=== PATIENT | female | born 1990 | race Caucasian/White ===

== ENCOUNTER 2019-08-11 06:50 | Emergency (ER) | payer OTHER, SELFPAY ==
[2019-08-11 06:52] VITALS: BP 142/63; PULSE 62; RESP 16; TEMP 37.2; O2SAT 98; BMI 28.0
--- NOTE | 2019-08-11 07:07 | RAD_ITS ---
STUDY: X-RAY CHEST REASON FOR EXAM: Female, 29 years old with acute onset of chest pain. TECHNIQUE: Single AP portable view of the chest. COMPARISON: Prior comparison studies are not available for review at this time. FINDINGS: Cardiac monitoring leads are present. The lungs are clear and hyperexpanded. There is no demonstrated pleural abnormality. Normal size heart. Normal mediastinum and fannie. Normal visualized pulmonary arteries. Normal visualized aortic arch and descending thoracic aorta. Normal visualized thoracic spine. Normal visualized ribs, clavicles, and shoulders. There is no demonstrated abnormality of the visualized soft tissue structures of the upper abdomen. RAD/Chest 1 View (Portable) IMPRESSION: No radiographic evidence of acute cardiopulmonary disease. Electronically Signed: Mona Redman MD at 7:36 EST , Service support ,
--- NOTE | 2019-08-11 07:07 | EKG12_ITS ---
Test Reason : CP Blood Pressure : / mmHG Vent. Rate : 059 BPM Atrial Rate : 059 BPM P-R Int : 140 ms QRS Dur : 094 ms QT Int : 410 ms P-R-T Axes : 034 077 031 degrees QTc Int : 405 ms Sinus bradycardia Otherwise normal ECG Confirmed by ALEKSANDAR OH, RONALD ([id number]), manager editorial WALTER MURGUIA ([id number]) on 08/12/2019 10:12:14 AM Referred By: SCOT Confirmed By:RONALD HUERTAS MD
--- NOTE | 2019-08-11 07:08 | ED.DCSUM_ITS ---
- ER Visit Summary Date of Service: 08/11/19 Chief Complaint: Chest pain History of Present Illness: The patient is a 29 F who presents with chest pain that began today. Patient states the pain is over the left chest. Patient states the pain occasionally radiates into her neck. Patient states the pain is worse with movement of her arm and with deep breathing. Patient states nothing seems to help with the pain. Patient describes the pain as tightness and sharp. Patient admits to some lightheadedness and dizziness. Patient also admits to some reflux symptoms. Patient admits to a mild episode of diaphoresis. Patient also admits to recent cough. Patient is a smoker. Patient denies any other c ardiac or PE risk factors. Physical Examination: Vital signs are stable. Patient is afebrile. Patient is in no acute distress. Oral mucosa is pink and moist. Neck is supple. Trachea is midline. There is no JVD noted. Heart was regular rate and rhythm. Lungs showed a slight expiratory wheeze in the bases bilaterally. Abdomen is soft. Bowel sounds are normal. There is no tenderness. There is no rebound or guarding noted. Skin is warm dry. Cranial nerves II through XII are intact. There are no focal motor or sensory deficits noted. Extremities are intact. Th ere is no calf tenderness or edema. Test Results: EKG showed normal sinus rhythm with a rate of 59. There are no acute ST or T wave changes. This was unchanged compared to previous EKG dated 04/16/2015. CBC shows a mild leukocytosis of 15.1. Creatinine was slightly elevated at 1.10. Previous result was 0.9. Troponin was normal. Portable chest x-ray was obtained. There is no acute cardiopulmonary process. Emergency Department Course and Treatment: Patient was given aspirin here. Patient was given a GI cocktail. Patient felt better on reevaluation. Patient was advised that this may be gastroesophageal reflux disease causing her pain. Patient has a HEART score of 2. Patient was advised this is low risk for acute cardiac event. Patient was given a prescription for Prilosec. Patient was instructed to follow-up with her primary care physician in 5 to 7 days. Patient understood and was agreeable with the plan. All questions were answered. Disposition: Discharge home Impression: 1. Chest pain of uncertain etiology This note was generated with [employer] software. It may contain incorrect words, spelling, and punctuation that were not noted in review of the chart prior to signing ED Disposition - Plan for ED Patient: Disposition: Home or Assisted Living Diagnosis: Chest pain of uncertain etiology Instructions: CHEST PAIN, Uncertain Cause Prescriptions: Omeprazole [Prilosec] 20 mg PO DAILY #30 cap Prescription Printed Referrals: Alfa Moss MD [Primary Care Provider] - 5-7 Days
[2019-08-11] MEDS: Aspirin 81 MG TAB.CHEW 324 MG PO (07:15)
[2019-08-11 07:29] LABS: Absolute Lymphocyte Count 5.21 X10^3/uL (0.83-4.51); Basophil# 0.05 X10^3/uL; Basophil% 0.3 % (0-1); Eosinophil# 0.78 X10^3/uL; Eosinophils% 5.2 % (0-5); Hematocrit 43.4 % (37-47); Hemoglobin 14.3 g/dL (12.0-15.0); Lymphocyte # 5.21 X10^3/ul (4.0); Lymphocyte % 34.6 % (19-41); Mean Corp Hgb Conc 32.9 g/dL (32-36); Mean Corpuscular Hgb 30.3 pg (27.0-32.0); Mean Corpuscular Volume 91.9 fL (81-99); Mean Platelet Vol. 9.3 fl (6.2-12.0); Monocyte# 0.96 X10^3/uL; Monocyte% 6.4 % (0-10); NRBC Flagged by Analyzer 0 % (0-5); Neutrophil # 8.01 X10^3/uL (2.7-7.7); Neutrophil % 53.2 % (47-70); POSITIVE DIFFERENTIAL YES; Platelet Count 312 K/mm3 (150-450); RBC Distribution Width CV 12.1 % (11.6-14.6); RBC Distribution Width SD 40.7 fl (35.1-43.9); Red Blood Count 4.72 M/mm3 (4.2-5.4); White Blood Count 15.1 K/mm3 (4.4-11.0)
[2019-08-11 07:36] LABS: Anion Gap 6 (5-15); BUN 12 mg/dL (7-18); BUN/Creat Ratio 10.9 RATIO (10-20); Calcium,Total 9.3 mg/dL (8.5-10.1); Chloride 105 mmol/L (98-107); EST Glomerular Filtration Rate 63 mL/min (>60); Est Glom Filt Rate - Afr Amer 77 mL/min (>60); Estimated Creatinine Clearance 71.92 ml/min; Glucose 88 mg/dL (74-106); Potassium 3.7 mmol/L (3.5-5.1); Sodium Level 137 mmol/L (136-145)
[2019-08-11 07:38] LABS: Differential Indicated SCAN CRITERIA MET
[2019-08-11 08:06] VITALS: BP 126/78; PULSE 45; RESP 16; O2SAT 97
[2019-08-11] MEDS: Mag Hydrox/Al Hydrox/Simeth 30 ML UDC PO (09:09)
[2019-08-11 09:10] VITALS: BP 118/69; PULSE 84; RESP 16; O2SAT 98
== END 2019-08-11 09:10 | disposition home or self-care (01) ==
PROVIDERS: Emergency Provider Emergency Medicine; Family Provider Family Medicine; PCP Family Medicine
DX: R07.9 Chest pain, unspecified (principal); R53.1 Weakness; M54.2 Cervicalgia; R05 Cough; F17.210 Nicotine dependence, cigarettes, uncomplicated; F41.9 Anxiety disorder, unspecified
CPT/HCPCS: 71045; 80048; 84484; 85025; 93005; 99284; A4216

== ENCOUNTER 2020-02-29 21:47 | Emergency (ER) | payer OTHER, SELFPAY ==
[2020-02-29 21:48] VITALS: BP 148/82; PULSE 73; RESP 16; TEMP 36.7; BMI 28.0
--- NOTE | 2020-02-29 22:03 | ED.VISSUMM ---
- ER Visit Summary Date of Service: 02/29/20 Chief Complaint: Generalized weakness History of Present Illness: The patient is a 29 F history of anxiety and depression. Patient states that she has had intermittent dizziness and near syncope recently. Is been intermittent and on last seconds. It comes and goes. She denies any headache chest pain or abdominal pain. She denies any nausea or vomiting. Today she did have several episodes of loose stools. Dysuria. Her last menstrual period was 3 weeks ago. She is G1, P1 Ab0. She denies any vaginal bleeding. She denies any melena. Physical Examination: Well-appearing young female. No acute distress. Vital signs are stable and afebrile. Pulse ox 96% on room air no signs hypoxia. H EENT exam normal. Neck nontender no lymphadenopathy. Lungs clear to auscultation bilaterally. Heart regular rhythm no murmur rate about 70. Abdomen soft nontender normal bowel sounds no peritoneal signs. Extremities moves all 4. Calves are nontender without edema or cords. Back nontender. Neurologically she is awake alert with no focal motor or sensory deficits. Equal symmetrical reconcilement clerk strength. Dorsi plantarflexion intact. Test Results: CBC is a white count of 14.4 previously she had a white count of 15 hemoglobin is 14. Chemistries unremarkable gap of 8. Creatinine 1.1. Emergency Department Course and Treatment: Clinically patient looks good. She is in no distress. Her exam is unremarkable. Normal heart, lung and abdominal exam. This may all be secondary to anxiety. Patient requested CBC and chemistry be done as a be evaluated if okay she will be discharged to home. Repeat exam patient is doing well at 2247. She has recently stopped taking 1 of her anxiety medications which may be part of the problem. She was instructed to restart that. Her repeat exam is unchanged and normal. Treatment Plan: Restart her anxiety meds. Follow-up with her primary care physician. Return if feeling worse. Disposition: Discharge Impression: Acute near syncope and generalized weakness of uncertain etiology History of anxiety This note was generated with the[employer] dictation software. It may contain incorrect words, spelling, and punctuation that were not noted in review of the chart prior to signing ED Disposition - Plan for ED Patient: Referrals: Alfa Moss MD [Primary Care Provider] -
[2020-02-29 22:17] VITALS: O2SAT 98
[2020-02-29 22:27] LABS: Hematocrit 42.3 % (37-47); Mean Corp Hgb Conc 33.1 g/dL (32-36); Mean Corpuscular Hgb 30.6 pg (27.0-32.0); Mean Corpuscular Volume 92.6 fL (81-99); Mean Platelet Vol. 10.1 fl (6.2-12.0); Platelet Count 294 K/mm3 (150-450); RBC Distribution Width CV 12.1 % (11.6-14.6); RBC Distribution Width SD 41.1 fl (35.1-43.9); Red Blood Count 4.57 M/mm3 (4.2-5.4); White Blood Count 14.4 K/mm3 (4.4-11.0)
[2020-02-29 22:41] LABS: Anion Gap 8 (5-15); BUN 13 mg/dL (7-18); BUN/Creat Ratio 11.5 RATIO (10-20); Calcium,Total 8.5 mg/dL (8.5-10.1); Chloride 110 mmol/L (98-107); Creatinine, Serum 1.13 mg/dL (0.55-1.02); EST Glomerular Filtration Rate 61 mL/min (>60); Est Glom Filt Rate - Afr Amer 74 mL/min (>60); Estimated Creatinine Clearance 70.01 ml/min; Glucose 114 mg/dL (74-106); Potassium 3.5 mmol/L (3.5-5.1); Sodium Level 141 mmol/L (136-145)
--- NOTE | 2020-02-29 22:50 | ED.DEP ---
ED Disposition - Plan for ED Patient: Disposition: Home or Assisted Living Instructions: ED Weakness [facility] Referrals: Alfa Moss MD [Primary Care Provider] - 3-5 Days if not improving Additional Instructions: Restart the anxiety medication that you have not been taking. Follow-up with your doctor. Return emergency department if you are feeling a lot worse. Your exam tonight and labs are unremarkable.
== END 2020-02-29 22:58 | disposition home or self-care (01) ==
PROVIDERS: Emergency Provider Emergency Medicine; PCP Family Medicine
DX: R53.1 Weakness (principal); R55 Syncope and collapse; F41.9 Anxiety disorder, unspecified; R30.0 Dysuria; R42 Dizziness and giddiness; F32.9 Major depressive disorder, single episode, unspecified
CPT/HCPCS: 80048; 85027; 94760; 99284; A4216

== ENCOUNTER 2023-08-09 12:07 | Emergency (ER) | payer OTHER, SELFPAY ==
[2023-08-09 12:07] VITALS: BP 144/96; PULSE 81; RESP 16; TEMP 36.2; O2SAT 98; BMI 28.5
[2023-08-09 13:14] LABS: Bacteria 0 SEEN /hpf (None Seen); Mucous, Urine 0 SEEN /hpf (<or=2+); Red Blood Cells-Urine 0 SEEN /hpf (0-5); Squamous Epithelial Cells - UA 0 SEEN /hpf (5-10); White Blood Cells 0 SEEN /hpf (0-5)
[2023-08-09 13:19] LABS: Absolute Lymphocyte Count 3.46 X10^3/uL (0.83-4.51); Absolute Neutrophil Count 13.3 X10^3/uL (2.0-7.7); Basophil# 0.07 X10^3/uL; Basophil% 0.4 % (0-1); Eosinophil# 0.36 X10^3/uL; Eosinophils% 1.9 % (0-5); Hemoglobin 14.8 g/dL (12.0-15.0); Lymphocyte # 3.46 X10^3/ul (0.83-4.51); Lymphocyte % 18.7 % (19-41); Mean Corp Hgb Conc 32.9 g/dL (32-36); Mean Corpuscular Volume 91.3 fL (81-99); Mean Platelet Vol. 9.8 fl (6.2-12.0); Monocyte# 1.18 X10^3/uL; Monocyte% 6.4 % (0-10); NRBC Flagged by Analyzer 0 % (0-5); Neutrophil # 13.31 X10^3/uL (2.7-7.7); Platelet Count 320 K/mm3 (150-450); RBC Distribution Width CV 12.2 % (11.6-14.6); RBC Distribution Width SD 40.5 fl (35.1-43.9); Red Blood Count 4.93 M/mm3 (4.2-5.4); White Blood Count 18.5 K/mm3 (4.4-11.0)
[2023-08-09 13:26] LABS: Color, Urine Yellow (Yellow); Glucose, Dipstick Normal (Normal); Ketone-Dipstick Negative (Negative); Leukocyte Esterase-Dipstick Negative /ul (Negative); Nitrite-Dipstick Negative (Negative); Occult Blood-Urine 25 /ul (Negative); Protein-Dipstick 30 mg/dl (Negative); Urine Bilirubin Dipstick Negative (Negative); Urine Clarity Clear (Clear); Urine Urobilinogen Normal (Normal)
[2023-08-09 13:32] LABS: Anion Gap 7 (5-15); BUN 15 mg/dL (7-18); BUN/Creat Ratio 13.8 RATIO (10-20); Calcium,Total 9.6 mg/dL (8.5-10.1); Chloride 106 mmol/L (98-107); Creatinine, Serum 1.09 mg/dL (0.55-1.02); EST Glomerular Filtration Rate 62 mL/min (>60); Est Glom Filt Rate - Afr Amer 75 mL/min (>60); Estimated Creatinine Clearance 79.96 ml/min; Glucose 108 mg/dL (74-106); Potassium 4.1 mmol/L (3.5-5.1); Sodium Level 137 mmol/L (136-145)
[2023-08-09 13:35] LABS: Amphetamine Urine VISTA NEGATIVE (<1000 ng/mL); Barbiturate Urine VISTA NEGATIVE (< 200 ng/mL); Benzodiazepine Urine VISTA NEGATIVE (< 200 ng/mL); Cocaine Urine VISTA NEGATIVE (< 300 ng/mL); Ecstacy Urine VISTA NEGATIVE (< 500 ng/mL); Methadone Urine VISTA NEGATIVE (< 300 ng/mL); PCP Urine VISTA NEGATIVE (< 25 ng/mL); THC Urine VISTA POSITIVE (< 50 ng/mL); Vista UDS pH Range 5
[2023-08-09 13:36] LABS: Alcohol, Blood (Medical)-Serum < 3.0 mg/dL
[2023-08-09 13:39] LABS: Internal QC Validated? YES +Cl - CLEAR BKGD; Pregnancy, Serum, hCG Quali. NEGATIVE Negative
--- NOTE | 2023-08-09 14:35 | EX.ED.VIS.PS ---
HPI HPI - Psych History of Present Illness Chief Complaint: Mental Health Narrative Narrative: 33-year-old female presenting with depression. She states he struggled with this for years since she was about 17. She states that the last couple of weeks have been harder for her. She has not been on any medications recently. She is previously been on Zoloft and took herself off of it because she did not think she needed anymore. She states it is hard to make an appointment with her PCP, but she has not tried to make an appointment. She states it is just hard for her to function. She states she has not been to work in a week. Denies suicidal/homicidal ideation. Patient just feels depressed. She is looking for resources. [facility] Medical History Mental health problem Home Medications levonorgestrel-ethinyl estradiol 0.1 mg-20 mcg tablet 1 ea PO DAILY 02/29/20 [History Last Taken Unknown] sertraline 25 mg tablet 25 mg PO DAILY #30 tabs 08/09/23 [Rx Last Taken Unknown] Allergy/AdvReac Type Severity Reaction Status Date / Time No Known Allergies Allergy Verified 08/09/23 12:10 Social History Smoking Status: Current every day smoker tobacco type: cigarettes ROS ROS ED Constitutional Constitutional ED: Denies chills, fever(s) or sweats Eyes Eyes: Denies blurry vision or change in vision ENT ENT ED: Denies ear pain or sore throat Cardiovascular Cardiovascular: Denies chest pain, palpitations or racing heartbeat Respiratory/Chest Respiratory/Chest: Denies cough, dyspnea or sputum Gastrointestinal Gastrointestinal: Denies abdominal pain, constipation, diarrhea, nausea or vomiting Genitourinary Genitourinary ED: Denies dysuria, hematuria or urinary frequency Musculoskeletal Musculoskeletal: Denies arthralgias, myalgias or neck pain Integumentary Denies abscess, Abrasions or rash Neurologic Neurologic: Denies headache(s), paresthesias or weakness Psychiatric Psychiatric: Reports depression; Denies anxiety, suicidal ideation or suicidal thoughts Endocrine Endocrinology: Denies polydipsia or polyuria EXAM Physical Exam Const Vital Signs: 08/09/23 12:07 Temperature 97.2 F L Temperature Source Temporal Pulse Rate 81 Respiratory Rate 16 Blood Pressure 144/96 H Blood Pressure Mean 112 Pulse Ox 98 Positive well nourished General Appearance ED: Negative for pallor HEENT Reports moist mucous membranes normocephalic and atraumatic Resp normal respiratory effort Auscultation: Negative for rales, rhonchi or wheezes Cardio Rate: regular rate Neuro oriented x3 and CN's II-XII intact bilaterally Sensorium / Orientation: alert Motor Exam: strength 5/5 throughout Psych mental status grossly normal Appearance: grossly normal Attitude: calm and engaged Activity / Motor Behavior: appropriate eye contact Speech: normal speech Mood & Affect: sad Thought Process: normal thought process Thought Content: No suicidality, No homicidality, No phobia(s), No delusion(s) and No hallucination(s) Attention / Concentration: attention grossly intact Memory / Cognition: memory grossly intact Insight: insight good Judgement: judgement good Skin General Skin Exam: Negative for jaundice or pallor MDM MDM MDM Narrative Medical decision making narrative: Patient presenting with depression. She states more so the last couple of weeks. She reports also been worse over several months she has not seen a doctor for this. Patient states has previously been on Zoloft and other medications but took her self off because she felt she was doing better. She states she is feeling on functional because of her depression. She has not been to work in a week. Appropriate screening lab work was obtained. CBC shows leukocytosis of 18.5 however it looks like she has had elevated white blood cell counts in the past. She denies any fevers, chills, night sweats etc. No significant left shift. Renal function and electrolytes unremarkable. Urinalysis negative for infection. hCG negative. Drug screen positive for cannabinoids. EtOH negative. Will have the crisis counselor come speak to her regarding resources. She is medically cleared at this time. Patient was seen by crisis and we feel she can safely be discharged plan. She is going to start IOP. I started her back on Zoloft. Return precautions were discussed at length. Impression: 1. Depression Lab Data Attestation: I reviewed the patient's lab results. Labs: Laboratory Results - last 24 hr 08/09/23 13:08 WBC 18.5 H RBC 4.93 Hgb 14.8 Hct 45.0 MCV 91.3 MCH 30.0 MCHC 32.9 RDW Std Deviation 40.5 RDW Coeff of Danish 12.2 Plt Count 320 MPV 9.8 Immature Gran % (Auto) 0.600 Neut % (Auto) 72.0 H Lymph % (Auto) 18.7 L [place] % (Auto) 6.4 Eos % (Auto) 1.9 Baso % (Auto) 0.4 Absolute Neuts (auto) 13.3 H Absolute Lymphs (auto) 3.46 Nucleated RBC % 0 Sodium 137 Potassium 4.1 Chloride 106 Carbon Dioxide 24.0 Anion Gap 7 BUN 15 Creatinine 1.09 H Estim Creat Clear Calc 79.96 Est GFR (MDRD) Af Amer 75 Est GFR (MDRD) Non-Af 62 BUN/Creatinine Ratio 13.8 Glucose 108 H Calcium 9.6 Serum , Qual NEGATIVE Urine Color Yellow Urine Clarity Clear Urine pH 6.0 Ur Specific [place] 1.020 Urine Protein 30 H Urine Glucose (UA) Normal Urine Ketones Negative Urine Occult Blood 25 H Urine Nitrite Negative Urine Bilirubin Negative Urine Urobilinogen Normal Ur Leukocyte Esterase Negative Urine RBC 0 SEEN Urine WBC 0 SEEN Ur Squamous Epith Cells 0 SEEN Urine Bacteria 0 SEEN Urine Mucus 0 SEEN Urine Opiates Screen NEGATIVE Urine Methadone Screen NEGATIVE Ur Barbiturates Screen NEGATIVE Ur Phencyclidine Scrn NEGATIVE Ur Amphetamines Screen NEGATIVE MDMA (Ecstasy) Screen NEGATIVE U Benzodiazepines Scrn NEGATIVE Urine Cocaine Screen NEGATIVE U Cannabinoids Screen POSITIVE H Ur Drug Screen Comment Ethyl Alcohol < 3.0 Discharge Plan Triage Chief Complaint: Mental Health ED Provider: Solomon Pompa Dx/Rx/DC Orders Instructions: ED Depression Prescriptions: New sertraline 25 mg tablet 25 mg PO DAILY Qty: 30 0RF No Action levonorgestrel-ethinyl estrad 1 EACH tablet 1 ea PO DAILY Primary Care Provider: Domonique Alvarez AVAYA ENGINEER Referrals: Alfa Moss MD [Non-Staff] - Activity Restrictions/Additional Instructions: He was seen by the crisis counselor today for depression. You are going to be referred to the IOP program for follow-up. We feel you are stable for discharge home and to make this follow-up. We will restart your Zoloft today. Return for any new or worsening symptoms. Disposition Disposition: Home, Self Care
--- OUTSIDE RECORDS SUMMARY | 2023-08-09 15:06 | XMS RPT_ITS | CCD ---
Demographics Address [address] [place] [address] Preferred Language en Marital Status Single Nondenominational Affiliation Unknown Race White Ethnic Group Not or Lati no Author Name Unknown Address [address] [place] [address] Organization [facility] Care Team Providers Care Economic Development Director Name Role Phone Alfa Rogers Unavailable Unavailable Ajay [place], Alfa Mascorro Primary Care Provider Ajay [place], Alfa Mascorro Primary Care Provider Ajay [place], Alfa Mascorro Primary Care Provider FFEJAE MANAGER RADIO-CHRISTIAN COUNSELOR, JAILENE Primary Care Physician LIA [place], DR GARDUNO Attending Unavailab le SEFFENS MANAGER RADIO-CHRISTIAN COUNSELOR, [facility] Primary Care Unavai lable FFEJAE MANAGER RADIO-CHRISTIAN COUNSELOR, JAILENE Attending Unavai lable ANGELI MANAGER RADIO-CHRISTIAN COUNSELOR, [facility] Primary Care Unavai lable FFEJAE MANAGER RADIO-CHRISTIAN COUNSELOR, JAILENE Attending Unavai lable ANGELI MANAGER RADIO-CHRISTIAN COUNSELOR, [facility] Primary Care Unavai lable MARVIN [place], DR STEPHON Glover Attending Unavai lable SEFFENS MANAGER RADIO-CHRISTIAN COUNSELOR, JAILENE Primary Care Unavai lable JORDON, MARTINEZ PAC Attending Unavailable JORDON, MARTINEZ PAC Primary Care Unavailable JORDON, MARTINEZ PAC Admitting Unavailable ALFA ROGERS Primary Care Unavailab ALFA Alexandra Primary Care Unavailab le ALFA ROGERS Primary Care Unavailab le ALFA ROGERS Primary Care Unavailab le ALFA ROGERS Primary Care Unavailab SU Boyer Referring Unavailable ALFA ROGERS Primary Care Unavailab le ALFA ROGERS Primary Care Unavailab le ALFA ROGERS Primary Care Unavailab le Medications Current Medications Medication Drug Class(es) Dates Sig (Normalized) Sig (Original) escitalopram 20 mg oral tablet (3 sources) Serotonin Reuptake Inhibitor Start: 06-22-2017 take 1 dose by mouth once daily Lexapro Dose : 20 mg =, Oral, qDay Start Date: 06/22/17 Status: Ordered Completed/Discontinued Medications Medication Drug Class(es) Dates Sig (Normalized) Sig (Original) clonazePAM 0.5 mg oral tablet (15 sources) Benzodiazepine Start: 08-15-2022 End: 09-14-2022 KlonoPIN 0.5 mg oral tablet Dose : 0.25 mg = 0.5 tab(s), Oral, TID, takes as needed for anxiety, # 45 tab(s), 0 Refill(s), Pharmacy: [facility]/pharmacy #[id number], Anxiety, 166.5, cm, 08/15/22 14:14:00 EST, Height, 79.5 Start Date: 08/15/22 Stop Date: 09/14/22 Status: Ordered Problems Active Problems Problem Classification Problem Date Documented Da te Episodic/Chronic Anxiety disorders (7 sources) Mixed anxiety and depressive disorder; Translations: [Anxiety disorder] 06-22-2017 Chronic Fluid and electrolyte disorders (1 source) Dehydration; Translations: [Dehydration] Onset: 08-07-2022 Episodic Genitourinary symptoms and ill-defined conditions (2 sources) Increased frequency of urination; Translations: [Frequency of micturition] Episodic Headache; including migraine (1 source) Headache; Translations: [Headache, unspecified headache type] Episodic Immunizations and screening for infectious disease (2 sources) Suspected disease caused by 2019-nCoV; Translations: [Suspected COVID-19 virus infection] Episodic Malaise and fatigue (3 sources) Fatigue; Translations: [Other fatigue] Episodic Mood disorders (2 sources) Recurrent major depressive episodes, moderate 08-21-2022 Chronic Nausea and vomiting (2 sources) Vomiting; Translations: [Vomiting, unspecified] Episodic Noninfectious gastroenteritis (1 source) Noninfectious enteritis; Translations: [Noninfective gastroenteritis and colitis, unspecified] Onset: 08-07-2022 Episodic Other connective tissue disease (1 source) Muscle pain 10-17-2022 Episodic Other connective tissue disease (1 source) Pain in right hand; Translations: [Pain in right hand] 03-18-2023 Episodic Other female genital disorders (1 source) Vaginal discharge; Translations: [Other specified noninflammatory disorders of vagina] Episodic Other gastrointestinal disorders (1 source) Diarrhea; Translations: [Diarrhea, unspecified] Episodic Other injuries and conditions due to external causes (1 source) Injury of right hand; Translations: [Unspecified injury of right wrist, hand and finger(s), initial encounter] 03-18-2023 Episodic Other screening for suspected conditions (not mental disorders or infectious disease) (1 source) Procedure carried out on subject; Translations: [Encounter for screening, unspecified] Episodic Residual codes; unclassified (1 source) Influenza-like symptoms; Translations: [Other general symptoms and signs] Episodic Unclassified (1 source) Unknown / UNK(Unknown) Onset: 12-31-2017 Viral infection (4 sources) Viral disease; Translations: [Viral infection, unspecified] Episodic Past or Other Problems Problem Classification Problem Date Documented Da te Episodic/Chronic Abdominal pain (12 sources) Pain in female pelvis; Translations: [Pelvic and perineal pain] Onset: 04-08-2013 04-08-2013 Episodic Inflammatory diseases of female pelvic organs (12 sources) Acute pelvic inflammatory disease; Translations: [Acute parametritis and pelvic cellulitis] Onset: 08-21-2012 08-21-2012 Episodic Other upper respiratory infections (5 sources) Sore throat symptom; Translations: [Acute pharyngitis, unspecified] Onset: 08-09-2022 Episodic Unclassified (1 source) Z11.3,N76.6 Onset: 12-31-2017 Results Test Name Value Interpretation Reference Range Facil it Vital Signs Date Time Vital Sign Value Performing Clinician Facility 03-18-2023 10: Body temperature 98.8 [degF] Tran Garcia APRN.CNP Work Phone: [facility] 03-18-2023 10: Body weight 77.11 kg Tran Garcia APRN.CNP Work Phone: [facility] 03-18-2023 [id number] Diastolic blood pressure 68 mm[Hg] Tran Garcia APRN.CNP Work Phone: [facility] 03-18-2023 10:14-0400 Heart rate 80 /min Tran Radha MANAGER RADIO.CHRISTIAN COUNSELOR Work Phone: [facility] 03-18-2023 10:14-0400 Respiratory rate 16 /min Tran Radha MANAGER RADIO.CHRISTIAN COUNSELOR Work Phone: [facility] 03-18-2023 10:14-0400 SaO2% (BldA) [Mass fraction] 98 % Tran Radha MANAGER RADIO.CHRISTIAN COUNSELOR Work Phone: [facility] 03-18-2023 10:14-0400 Systolic blood pressure 110 mm[Hg] Tran Radha MANAGER RADIO.CHRISTIAN COUNSELOR Work Phone: [facility] 11-21-2022 13:58-0400 Body temperature 97.9 [degF] Krislyn Aberegg PA Work Phone: [facility] 11-21-2022 13:58-0400 Body weight 79.11 kg Krislyn Aberegg PA Work Phone: [facility] 11-21-2022 13:58-0400 Diastolic blood pressure 80 mm[Hg] Krislyn Aberegg PA Work Phone: [facility] 11-21-2022 13:58-0400 Heart rate 79 /min Krislyn Aberegg PA Work Phone: [facility] 11-21-2022 13:58-0400 Respiratory rate 18 /min Krislyn Aberegg PA Work Phone: [facility] 11-21-2022 13:58-0400 SaO2% (BldA) [Mass fraction] 97 % Krislyn Aberegg PA Work Phone: [facility] 11-21-2022 13:58-0400 Systolic blood pressure 122 mm[Hg] Krislyn Aberegg PA Work Phone: [facility] 11-13-2022 10:02-0400 Body temperature 97.7 [degF] Clair Cotto PA-C Work Phone: [facility] 11-13-2022 10:02-0400 Body weight 81.92 kg Clair Athy PA-C Work Phone: [facility] 11-13-2022 10:02-0400 Diastolic blood pressure 78 mm[Hg] Clair Athy PA-C Work Phone: [facility] 11-13-2022 10:02-0400 Heart rate 82 /min Clair Athy PA-C Work Phone: [facility] 11-13-2022 10:02-0400 Respiratory rate 18 /min Clair Athy PA-C Work Phone: [facility] 11-13-2022 10:02-0400 SaO2% (BldA) [Mass fraction] 98 % Clair Athy PA-C Work Phone: [facility] 11-13-2022 10:02-0400 Systolic blood pressure 118 mm[Hg] Clair Athy PA-C Work Phone: [facility] 10-12-2022 13:02-0400 Body temperature 98.1 [degF] Haydee Praisler-Wood MANAGER RADIO.CHRISTIAN COUNSELOR Work Phone: [facility] 10-12-2022 13:02-0400 Body weight 78.38 kg Haydee Praisler-Wood MANAGER RADIO.CHRISTIAN COUNSELOR Work Phone: [facility] 10-12-2022 13:02-0400 Diastolic blood pressure 80 mm[Hg] Haydee Praisler-Wood MANAGER RADIO.CHRISTIAN COUNSELOR Work Phone: [facility] 10-12-2022 13:02-0400 Heart rate 77 /min Haydee Praisler-Wood MANAGER RADIO.CHRISTIAN COUNSELOR Work Phone: [facility] 10-12-2022 13:02-0400 Respiratory rate 18 /min Haydee Praisler-Wood MANAGER RADIO.CHRISTIAN COUNSELOR Work Phone: [facility] 10-12-2022 13:02-0400 SaO2% (BldA) [Mass fraction] 98 % Haydee Praisler-Wood MANAGER RADIO.CHRISTIAN COUNSELOR Work Phone: [facility] 10-12-2022 13:02-0400 Systolic blood pressure 122 mm[Hg] Haydee Praisler-Wood MANAGER RADIO.CHRISTIAN COUNSELOR Work Phone: [facility] 10-04-2022 10:22-0500 Body temperature 98.4 [degF] Haydee Praisler-Wood MANAGER RADIO.CHRISTIAN COUNSELOR Work Phone: [facility] 10-04-2022 10:22-0500 Body weight 78.02 kg Haydee Praisler-Wood MANAGER RADIO.CHRISTIAN COUNSELOR Work Phone: [facility] 10-04-2022 10:22-0500 Diastolic blood pressure 92 mm[Hg] Haydee Praisler-Wood MANAGER RADIO.CHRISTIAN COUNSELOR Work Phone: [facility] 10-04-2022 10:22-0500 Heart rate 89 /min Haydee Praisler-Wood MANAGER RADIO.CHRISTIAN COUNSELOR Work Phone: [facility] 10-04-2022 10:22-0500 Respiratory rate 20 /min Haydee Praisler-Wood MANAGER RADIO.CHRISTIAN COUNSELOR Work Phone: [facility] 10-04-2022 10:22-0500 SaO2% (BldA) [Mass fraction] 98 % Haydee Praisler-Wood MANAGER RADIO.CHRISTIAN COUNSELOR Work Phone: [facility] 10-04-2022 10:22-0500 Systolic blood pressure 138 mm[Hg] Haydee Praisler-Wood MANAGER RADIO.CHRISTIAN COUNSELOR Work Phone: [facility] 08-09-2022 10:47-0500 Body temperature 98.1 [degF] Su Karel MANAGER RADIO.CHRISTIAN COUNSELOR Work Phone: [facility] 08-09-2022 10:47-0500 Body weight 79.38 kg Su Karel MANAGER RADIO.CHRISTIAN COUNSELOR Work Phone: [facility] 08-09-2022 10:47-0500 Diastolic blood pressure 80 mm[Hg] Su Karel MANAGER RADIO.CHRISTIAN COUNSELOR Work Phone: [facility] 08-09-2022 10:47-0500 Heart rate 76 /min Su Vinson APRN.CHRISTIAN COUNSELOR Work Phone: [facility] 08-09-2022 10:47-0500 Respiratory rate 16 /min Sujesus Vinson APRN.CHRISTIAN COUNSELOR Work Phone: [facility] 08-09-2022 10:47-0500 SaO2% (BldA) [Mass fraction] 98 % Su Karel MANAGER RADIO.CHRISTIAN COUNSELOR Work Phone: [facility] 08-09-2022 10:47-0500 Systolic blood pressure 128 mm[Hg] Su King BELLE.CHRISTIAN COUNSELOR Work Phone: [facility] 08-07-2022 19:08-0500 Body temperature 97.7 [degF] DR LAUREEN FITZGERALD MD [facility] 08-07-2022 19:08-0500 Diastolic Blood Pressure Non-Invasive [address] LAUREEN FITZGERALD MD [facility] 08-07-2022 19:08-0500 Heart rate 87 /min DR LAUREEN FITZGERALD MD [facility] 08-07-2022 19:08-0500 Respiratory rate 16 /min DR LAUREEN FITZGERALD MD [facility] 08-07-2022 19:08-0500 Systolic Blood Pressure Non-Invasive [address] LAUREEN FITZGERALD MD [facility] 07-19-2022 14:40-0500 Body temperature 97.7 [degF] Leila Spears APRN.CHRISTIAN COUNSELOR Work Phone: [facility] 07-19-2022 14:40-0500 Body weight 79.2 kg Leila Spears APRN.CHRISTIAN COUNSELOR Work Phone: [facility] 07-19-2022 14:40-0500 Diastolic blood pressure 82 mm[Hg] Leila Spears APRN.CHRISTIAN COUNSELOR Work Phone: [facility] 07-19-2022 14:40-0500 Heart rate 78 /min Leila Spears APRN.CHRISTIAN COUNSELOR Work Phone: [facility] 07-19-2022 14:40-0500 Respiratory rate 18 /min Leila Spears APRN.CHRISTIAN COUNSELOR Work Phone: [facility] 07-19-2022 14:40-0500 SaO2% (BldA) [Mass fraction] 98 % Leila Spears APRN.CHRISTIAN COUNSELOR Work Phone: [facility] 07-19-2022 14:40-0500 Systolic blood pressure 142 mm[Hg] Leila Spears APRN.CHRISTIAN COUNSELOR Work Phone: [facility] 05-18-2022 14:27-0400 Body temperature 97.59 [degF] Clair Athy PA-C Work Phone: [facility] 05-18-2022 14:27-0400 Body weight 78.11 kg Clair Athy PA-C Work Phone: [facility] 05-18-2022 14:27-0400 Diastolic blood pressure 76 mm[Hg] Clair Athy PA-C Work Phone: [facility] 05-18-2022 14:27-0400 Heart rate 79 /min Clair Athy PA-C Work Phone: [facility] 05-18-2022 14:27-0400 Respiratory rate 18 /min Clair Athy PA-C Work Phone: [facility] 05-18-2022 14:27-0400 SaO2% (BldA) [Mass fraction] 99 % Clair Athy PA-C Work Phone: [facility] 05-18-2022 14:27-0400 Systolic blood pressure 130 mm[Hg] Clair Athy PA-C Work Phone: [facility] 05-08-2022 14:52-0400 Body temperature 98.91 [degF] Haydee Prater APRN.CHRISTIAN COUNSELOR Work Phone: [facility] 05-08-2022 14:52-0400 Body weight 77.56 kg Haydee Praisler-Wood MANAGER RADIO.CHRISTIAN COUNSELOR Work Phone: [facility] 05-08-2022 14:52-0400 Diastolic blood pressure 80 mm[Hg] Haydee Praisler-Wood MANAGER RADIO.CHRISTIAN COUNSELOR Work Phone: [facility] 05-08-2022 14:52-0400 Heart rate 78 /min Haydee Praisler-Wood MANAGER RADIO.CHRISTIAN COUNSELOR Work Phone: [facility] 05-08-2022 14:52-0400 Respiratory rate 16 /min Haydee Praisler-Wood MANAGER RADIO.CHRISTIAN COUNSELOR Work Phone: [facility] 05-08-2022 14:52-0400 SaO2% (BldA) [Mass fraction] 99 % Haydee Praisler-Wood MANAGER RADIO.CHRISTIAN COUNSELOR Work Phone: [facility] 05-08-2022 14:52-0400 Systolic blood pressure 126 mm[Hg] Haydee Praisler-Wood MANAGER RADIO.CHRISTIAN COUNSELOR Work Phone: [facility] 04-17-2022 09:47-0400 Body temperature 97.7 [degF] Su Karel MANAGER RADIO.CHRISTIAN COUNSELOR Work Phone: [facility] 04-17-2022 09:47-0400 Body weight 79.38 kg Su Karel MANAGER RADIO.CHRISTIAN COUNSELOR Work Phone: [facility] 04-17-2022 09:47-0400 Diastolic blood pressure 80 mm[Hg] Su Karel MANAGER RADIO.CHRISTIAN COUNSELOR Work Phone: [facility] 04-17-2022 09:47-0400 Heart rate 76 /min Su Karel MANAGER RADIO.CHRISTIAN COUNSELOR Work Phone: [facility] 04-17-2022 09:47-0400 Respiratory rate 16 /min Su Karel MANAGER RADIO.CHRISTIAN COUNSELOR Work Phone: [facility] 04-17-2022 09:47-0400 SaO2% (BldA) [Mass fraction] 98 % Su Karel MANAGER RADIO.CHRISTIAN COUNSELOR Work Phone: [facility] 04-17-2022 09:47-0400 Systolic blood pressure 134 mm[Hg] Su Vinson MANAGER RADIO.CHRISTIAN COUNSELOR Work Phone: [facility] 03-23-2022 16:27-0400 Body temperature 97.59 [degF] Tran Radha MANAGER RADIO.CHRISTIAN COUNSELOR Work Phone: [facility] 03-23-2022 16:27-0400 Body weight 77.11 kg Tran Radha MANAGER RADIO.CHRISTIAN COUNSELOR Work Phone: [facility] 03-23-2022 16:27-0400 Diastolic blood pressure 74 mm[Hg] Tran Radha MANAGER RADIO.CHRISTIAN COUNSELOR Work Phone: [facility] 03-23-2022 16:27-0400 Heart rate 84 /min Tran Radha MANAGER RADIO.CHRISTIAN COUNSELOR Work Phone: [facility] 03-23-2022 16:27-0400 Respiratory rate 16 /min Tran Radha MANAGER RADIO.CHRISTIAN COUNSELOR Work Phone: [facility] 03-23-2022 16:27-0400 SaO2% (BldA) [Mass fraction] 97 % Tran Radha MANAGER RADIO.CHRISTIAN COUNSELOR Work Phone: [facility] 03-23-2022 16:27-0400 Systolic blood pressure 122 mm[Hg] Tran Radha MANAGER RADIO.CHRISTIAN COUNSELOR Work Phone: [facility] Encounters Encounter Date Encounter Type Care Provider Facility Start: 08-07-2023 End: 08-07-2023 ambulatory ALFA ROGERS Facility:[facility] Start: 07-27-2023 End: 07-27-2023 ambulatory ALFA ROGERS Facility:[facility] Start: 07-26-2023 End: 07-26-2023 ambulatory ALFA ROGERS Facility:[facility] Start: 05-10-2023 ambulatory [facility] Start: 03-18-2023 End: 03-18-2023 Emergency department patient visit DR STEPHON WONG MD Facility: Start: 03-18-2023 End: 03-18-2023 ambulatory ALFA ROGERS Facility:[facility] Start: 03-18-2023 End: 03-18-2023 Patient encounter procedure Tran Garcia APRN.CHRISTIAN COUNSELOR Work Phone: [facility] Procedures Date Procedure Procedure Detail Performing Clinician Start: 11-13-2022 BACTERIAL VAGINOSIS AMPLIFICATION Clair VACA-Stacey Work Phone: Start: 11-13-2022 Iadna chlamydia trac homatis amplified probe tq Clair VACA-C Work Phone: Start: 11-13-2022 End: 11-13-2022 Urnls dip stick/tablet rgnt auto w/o microscopy Clair VACA-Stacey Work Phone: Start: 10-04-2022 INFLUENZA A&B MOLECU LAR (POC) Haydee Prater APRN.CHRISTIAN COUNSELOR Work Phone: Start: 10-04-2022 STREP A MOLECULAR (POC) [facility] Provider Start: 08-09-2022 STREP A MOLECULAR (POC) [facility] Provider Start: 07-19-2022 STREP A MOLECULAR (POC) Leila Spears APRN.CHRISTIAN COUNSELOR Work Phone: Start: 05-18-2022 End: 05-18-2022 Urnls dip stick/tablet rgnt auto w/o microscopy Clair Cotto PA-C Work Phone: Start: 04-17-2022 Urine test visual color cmprsn meths Su Vinson MANAGER RADIO.CHRISTIAN COUNSELOR Work Phone: Start: 03-23-2022 STREP A MOLECULAR (POC) Tran Garcia APRN.CHRISTIAN COUNSELOR Work Phone: Start: 07-30-2006 Structure of wisdom tooth (body structure) JAILENE SUH APRN-[facility] Plan of Treatment Date Care Activity Detail Author Start: 10-02-2024 PAP TESTING PAP TESTING [facility] Start: 09-05-2023 HPV TESTING HPV TESTING [facility] Start: 03-30-2023 Influenza vaccination [facility] Start: 10-02-2022 PAP TESTING PAP TESTING [facility] Start: 08-09-2022 End: 10-09-2022 Heterophile Ab [Presence] in Serum by Latex agglutination [facility] Work Phone: Immunizations Immunization Date Immunization Notes Care Provider Fa servando 08-27-2014 influenza virus vaccine, unspecified formulation JAILENE SUH MANAGER RADIO-CHRISTIAN COUNSELOR [facility] 07-31-2003 hepatitis B pediatri c vaccine JAILENE SEFFENS MANAGER RADIO-CHRISTIAN COUNSELOR [facility] [place] 03-31-2003 hepatitis B pediatri c vaccine JAILENE SEFFENS MANAGER RADIO-CHRISTIAN COUNSELOR [facility] [place] 02-11-2003 hepatitis B pediatri c vaccine JAILENE FFENS MANAGER RADIO-CHRISTIAN COUNSELOR [facility] [place] Payers Date Payer Category Payer Private Health Insurance [facility] CHOICE PLUS [id number] 2022-Present [phone] [address] [address] [place] [address] HMO [id number] 2022 Unknown [id number] 1992 Unknown [id number] 1992 Unknown [id number] 1992 Unknown [id number] 1992 Unknown [id number] 1992 Unknown [id number] Unknown [id number] Social History Date Type Detail Facility Start: 10-10-2012 End: 04-17-2022 Tobacco smoking status NHIS Occasional tobacco smoker [facility] Work Phone: History of tobacco use Cigarette Smoker [facility] Work Phone: Start: 10-10-2012 End: 04-17-2022 Tobacco use and exposure Smokeless tobacco non-user [facility] Work Phone: Start: 03-23-2022 End: 03-18-2023 Alcohol intake Current drinker of alcohol (finding) [facility] Start: 06-13-2017 History SDOH Alcohol Comment occ [facility] Start: 10-03-2019 History SDOH Social Connections Phone 5 [facility] Start: 10-03-2019 History SDOH Social Connections Get Together 3 [facility] Start: 10-03-2019 History SDOH Social Connections Hinduism 1 [facility] Start: 10-03-2019 History SDOH Social Connections Membership 2 [facility] Start: 10-03-2019 History SDOH Social Connections Living 8 [facility] Start: 10-03-2019 History SDOH Physical Activity MPS 12 [facility] Start: 10-03-2019 History SDOH Stress 4 [facility] Start: 10-03-2019 Education 13 [facility] Start: 1990 Sex Assigned At Not on file [facility] Start: 03-13-2022 End: 05-18-2022 Exposure to SARS-CoV-2 (event) Not sure [facility] Tobacco smoking status Smokes to bacco daily (finding) [facility] Sex Assigned At Sex [facility] Start: 08-15-2022 Tobacco smoking status Heavy tobacco smoker (finding) [facility] Start: 10-03-2019 End: 07-05-2020 History of Social function [facility] Work Phone: Start: 10-03-2019 End: 07-05-2020 Social connection and isolation panel [facility] Work Phone: Do you belong to any clubs or organizations such as uatsdin groups, unions, fraternal or athletic groups, or school groups? No [facility] Work Phone: Are you now , , , , never or living with a partner? Living with partner [facility] Work Phone: How hard is it for y ou to pay for the very basics like food, housing, medical care, and heating Not hard at all [facility] Work Phone: Do you feel stress - tense, restless, nervous, or anxious, or unable to sleep at night because your mind is troubled all the time - these days [OSQ] Rather much [facility] Work Phone: (I/We) worried wheth er (my/our) food would run out before (I/we) got money to buy more. Never true [facility] Work Phone: Functional Status Date Assessment Result Facility 08-07-2022 Functional Status Independent [facility] Mental Status Date Assessment Result Facility 08-07-2022 Mental Status Orientation Oriented x 4 [facility] Clinical Notes 10-10-2012 to 08-07-2023 Tran Garcia APRN.CHRISTIAN COUNSELOR - 03/18/2023 10:19 AM NOLA Soto - 11/21/2022 2:06 PM Lenore Cotto PA-C - 11/13/2022 11:27 AM Leo Carrasco APRN.CNP - 10/12/2022 1:11 PM EDT Note Date & Type Note Facility 08-07-2023 Note HNO ID: [id number] Author: LEILA SPEARS APRN.LINDA Service: ? Author Type: Nurse Practitioner Type: Progress Notes Filed: 08/07/2023 18:21 Note Text: CC: Patient presents with: Headache: CALVIN, bodyaches, fatigue and nausea x 1 day HPI: Tessy Ogden is a 33 year old female who presents to the office with complaint of sore throat for the past day. Symptoms are staying the same. Associated symptoms includes headache, body aches, fatigue, and nausea. Denies fever, nausea, vomiting , and diarrhea. Treatments tried include nothing so far. with no relief of symptoms. Sick contacts: unknown. History of asthma, frequent episodes of bronchitis, chronic bronchitis, bronchiectasis or COPD: No Smoker: No Seasonal/environmental allergies: No The ROS is otherwise negative. The patient's pmh, medications, allergies, and past visits are reviewed. PHYSICAL EXAM: BP 142/86 Pulse 86 Temp 36.3 ?C (97.4 ?F) (Tympanic) Resp 18 Wt 81.1 kg (178 lb 12.8 oz) LMP 07/09/2023 (Within Days) SpO2 97% BMI 29.75 kg/m? General appearance: alert, cooperative, pleasant, in no acute distress Head: Normocephalic Eyes: EOM's intact, conjunctiva pink and moist, no icterus, sclera white, non-injected Ears: Right ear: External ear/canal- Normal, TM - clear with good landmarks. Left ear: External ear/canal- Normal, TM - clear with good landmarks Oropharynx:moderate erythema, with exudates present, +1 Neck:cervical adenopathy Heart: Negative. RRR without obvious murmur, gallop, or rubs. No ectopy. Lungs: clear to auscultation, without rales or wheeze, good air exchange PAST MEDICAL HISTORY Diagnosis Date Acid reflux Depression PAST SURGICAL HISTORY Procedure Laterality Date INSERTION OF IUD 10/15/2014 REMOVE IUD 12/2015 ALLERGIES Patient has no known allergies. MEDICATIONS clonazePAM (KLONOPIN) 0.5 mg tablet Take 0.5 mg by mouth as needed. DULoxetine (CYMBALTA) 30 mg capsule TAKE 30MG DAILY (1 CAP) FOR THE FIRST 7 DAYS, THEN INCREASE TO 60MG DAILY (2 CAPS) (Patient not taking: Reported on 03/18/2023) LIDOCAINE VISCOUS 2 % solution Take 5-10 mL by mouth as needed. (Patient not taking: Reported on 08/09/2022) sertraline (ZOLOFT) 50 mg tablet TAKE 1 TABLET BY MOUTH EVERY DAY (Patient not taking: Reported on 03/18/2023) ondansetron orally disintegrating (ZOFRAN ODT) 4 mg disintegrating tablet Take 1 tablet by mouth every 8 hours as needed. (Patient not taking: Reported on 10/04/2022) dicyclomine (BENTYL) 10 mg capsule Take 1 capsule by mouth every 8 hours as needed. (Patient not taking: Reported on 08/09/2022) ondansetron orally disintegrating (ZOFRAN ODT) 4 mg disintegrating tablet Take 1 tablet by mouth every 6 hours as needed for nausea/vomiting. (Patient not taking: Reported on 05/08/2022) dextromethorphan polistirex ER (DELSYM) 30 mg/5 mL oral liquid Take 10 mL by mouth twice daily. (Patient not taking: Reported on 10/04/2022) Levonorgestrel-Ethinyl Estrad (LARISSIA) 0.1mg - 20mcg per tablet Take 1 tablet by mouth once daily. (Patient not taking: Reported on 09/02/2021) FAMILY HISTORY Problem Relation Age of Onset Thyroid Mother hypo Heart Father other (migraines) Sister Heart Maternal Grandfather Heart Paternal Grandfather Social History Tobacco Use Smoking status: Some Days Types: Cigarettes Smokeless tobacco: Never Vaping Use Vaping Use: Never used Substance Use Topics Alcohol use: Yes Comment: occ Drug use: No ASSESSMENT/PLAN: 1. URI, acute - ICD9: 465.9, ICD10: J06.9 (primary diagnosis) - COVID AND INFLUENZA A/B AND RSV NAAT, ROUTINE 2. Sore throat - ICD9: 462, ICD10: J02.9 - STREP A MOLECULAR (POC) - neg Potential red flag symptoms discussed with the patient. Reviewed appropriate action plan to take if red flag symptoms occur. Patient agreeable to treatment plan. Leila Spears APRN.[facility] 07-27-2023 Note HNO ID: [id number] Author: Leila Spears APRN.LINDA Service: ? Author Type: Nurse Practitioner Type: Progress Notes Filed: 07/27/2023 12:20 PM Note Text: CC: Patient presents with: Recheck: Tested negative COVID visit 07/26; SX persistent. Needs work excuse HPI: Tessy Ogden is a 33 year old female who presents to the office with complaint of head congestion, cough, nonproductive, and sinus symptoms for a few days. Symptoms are staying the same. Associated symptoms includes headache and body aches. Denies fever, nausea, vomiting , and diarrhea. Treatments tried include nothing so far. with no relief of symptoms. Sick contacts: unknown. History of asthma, frequent episodes of bronchitis, chronic bronchitis, bronchiectasis or COPD: No Smoker: No Seasonal/environmental allergies: No The ROS is otherwise negative. The patient's pmh, medications, allergies, and past visits are reviewed. PHYSICAL EXAM: BP 126/80 Pulse 80 Temp 36.3 ?C (97.4 ?F) (Left Tympanic) Resp 16 Wt 80.4 kg (177 lb 3.2 oz) LMP 07/09/2023 (Within Days) SpO2 97% BMI 29.49 kg/m? General appearance: alert, cooperative, pleasant, in no acute distress Head: Normocephalic Eyes: EOM's intact, conjunctiva pink and moist, no icterus, sclera white, non-injected Ears: Right ear: External ear/canal- Normal, TM - clear with good landmarks. Left ear: External ear/canal- Normal, TM - clear with good landmarks Oropharynx:moist without lesions, No erythema, exudates or tonsillar hypertrophy. Heart: Negative. RRR without obvious murmur, gallop, or rubs. No ectopy. Lungs: clear to auscultation, without rales or wheeze, good air exchange PAST MEDICAL HISTORY Diagnosis Date Acid reflux Depression PAST SURGICAL HISTORY Procedure Laterality Date INSERTION OF IUD 10/15/2014 REMOVE IUD 12/2015 ALLERGIES Patient has no known allergies. MEDICATIONS DULoxetine (CYMBALTA) 30 mg capsule TAKE 30MG DAILY (1 CAP) FOR THE FIRST 7 DAYS, THEN INCREASE TO 60MG DAILY (2 CAPS) (Patient not taking: Reported on 03/18/2023) LIDOCAINE VISCOUS 2 % solution Take 5-10 mL by mouth as needed. (Patient not taking: Reported on 08/09/2022) sertraline (ZOLOFT) 50 mg tablet TAKE 1 TABLET BY MOUTH EVERY DAY (Patient not taking: Reported on 03/18/2023) ondansetron orally disintegrating (ZOFRAN ODT) 4 mg disintegrating tablet Take 1 tablet by mouth every 8 hours as needed. (Patient not taking: Reported on 10/04/2022) dicyclomine (BENTYL) 10 mg capsule Take 1 capsule by mouth every 8 hours as needed. (Patient not taking: Reported on 08/09/2022) ondansetron orally disintegrating (ZOFRAN ODT) 4 mg disintegrating tablet Take 1 tablet by mouth every 6 hours as needed for nausea/vomiting. (Patient not taking: Reported on 05/08/2022) dextromethorphan polistirex ER (DELSYM) 30 mg/5 mL oral liquid Take 10 mL by mouth twice daily. (Patient not taking: Reported on 10/04/2022) Levonorgestrel-Ethinyl Estrad (LARISSIA) 0.1mg - 20mcg per tablet Take 1 tablet by mouth once daily. (Patient not taking: Reported on 09/02/2021) clonazePAM (KLONOPIN) 0.5 mg tablet Take 0.5 mg by mouth as needed. (Patient not taking: Reported on 07/27/2023) FAMILY HISTORY Problem Relation Age of Onset Thyroid Mother hypo Heart Father other (migraines) Sister Heart Maternal Grandfather Heart Paternal Grandfather Social History Tobacco Use Smoking status: Some Days Types: Cigarettes Smokeless tobacco: Never Vaping Use Vaping Use: Never used Substance Use Topics Alcohol use: Yes Comment: occ Drug use: No ASSESSMENT/PLAN: 1. URI, acute - ICD9: 465.9, ICD10: J06.9 - COVID AND INFLUENZA A/B AND RSV NAAT, ROUTINE OTC meds for symptoms. Potential red flag symptoms discussed with the patient. Reviewed appropriate action plan to take if red flag symptoms occur. Patient agreeable to treatment plan. Leila Spears APRN.[facility] 07-26-2023 Note HNO ID: [id number] Author: Su Vinson APRN.CHRISTIAN COUNSELOR Service: ? Author Type: Nurse Practitioner Type: Progress Notes Filed: 07/26/2023 4:37 PM Note Text: Subjective HPI HPI Tessy Ogden is a 33 year old female who presents today for CC of h/a, cough, dizziness. This started 3 days ago. Has tried otc medication for relief. Symptoms are worsened by nothing. Risk factors sick exposures. Denies possibility of being . .Patient presents with: Fatigue: Headache and pain and pressure in face, congestion, , dizziness, cough x 3 days PAST MEDICAL HISTORY Diagnosis Date Acid reflux Depression PAST SURGICAL HISTORY Procedure Laterality Date INSERTION OF IUD 10/15/2014 REMOVE IUD 12/2015 ALLERGIES Patient has no known allergies. MEDICATIONS clonazePAM (KLONOPIN) 0.5 mg tablet Take 0.5 mg by mouth as needed. DULoxetine (CYMBALTA) 30 mg capsule TAKE 30MG DAILY (1 CAP) FOR THE FIRST 7 DAYS, THEN INCREASE TO 60MG DAILY (2 CAPS) (Patient not taking: Reported on 03/18/2023) LIDOCAINE VISCOUS 2 % solution Take 5-10 mL by mouth as needed. (Patient not taking: No sig reported) sertraline (ZOLOFT) 50 mg tablet TAKE 1 TABLET BY MOUTH EVERY DAY (Patient not taking: Reported on 03/18/2023) ondansetron orally disintegrating (ZOFRAN ODT) 4 mg disintegrating tablet Take 1 tablet by mouth every 8 hours as needed. (Patient not taking: Reported on 10/04/2022) dicyclomine (BENTYL) 10 mg capsule Take 1 capsule by mouth every 8 hours as needed. (Patient not taking: No sig reported) ondansetron orally disintegrating (ZOFRAN ODT) 4 mg disintegrating tablet Take 1 tablet by mouth every 6 hours as needed for nausea/vomiting. (Patient not taking: No sig reported) dextromethorphan polistirex ER (DELSYM) 30 mg/5 mL oral liquid Take 10 mL by mouth twice daily. (Patient not taking: Reported on 10/04/2022) Levonorgestrel-Ethinyl Estrad (LARISSIA) 0.1mg - 20mcg per tablet Take 1 tablet by mouth once daily. (Patient not taking: No sig reported) FAMILY HISTORY Problem Relation Age of Onset Thyroid Mother hypo Heart Father other (migraines) Sister Heart Maternal Grandfather Heart Paternal Grandfather Social History Tobacco Use Smoking status: Some Days Types: Cigarettes Smokeless tobacco: Never Vaping Use Vaping Use: Never used Substance Use Topics Alcohol use: Yes Comment: occ Drug use: No Review of Systems Constitutional: Negative for fever. HENT: Positive for congestion, ear pain and sore throat. Negative for ear discharge and nosebleeds. Respiratory: Positive for cough. Negative for shortness of breath and wheezing. Musculoskeletal: Negative for neck pain. Skin: Negative for itching and rash. Neurological: Positive for dizziness. Objective Blood pressure 127/91, pulse 78, temperature 36.9 ?C (98.4 ?F), resp. rate 16, weight 81.6 kg (180 lb), last menstrual period 07/09/2023, SpO2 98%. Physical Exam Constitutional: General: She is not in acute distress. Appearance: She is not toxic-appearing or diaphoretic. HENT: Head: Normocephalic and atraumatic. Right Ear: Hearing, tympanic membrane, ear canal and external ear normal. Left Ear: Hearing, tympanic membrane, ear canal and external ear normal. Nose: Nose normal. Mouth/Throat: Pharynx: Uvula midline. No pharyngeal swelling, oropharyngeal exudate, posterior oropharyngeal erythema or uvula swelling. Eyes: General: Lids are normal. No scleral icterus. Right eye: No discharge. Left eye: No discharge. Conjunctiva/sclera: Conjunctivae normal. Pupils: Pupils are equal, round, and reactive to light. Neck: Trachea: Trachea normal. Cardiovascular: Rate and Rhythm: Normal rate and regular rhythm. Heart sounds: Normal heart sounds. Pulmonary: Effort: Pulmonary effort is normal. Breath sounds: Normal breath sounds. Musculoskeletal: Cervical back: Normal range of motion and neck supple. Lymphadenopathy: Cervical: No cervical adenopathy. Right cervical: No superficial cervical adenopathy. Left cervical: No superficial cervical adenopathy. Skin: Findings: No rash. Neurological: Mental Status: She is alert and oriented to person, place, and time. ASSESSMENT/PLAN: 1. URI, acute - ICD9: 465.9, ICD10: J06.9 - Discussed viral etiology and rationale for treatment. - Symptomatic treatment with prn analgesia - Supportive care with fluids and rest - Follow up in 3-5 days if symptoms persist or sooner if worsening of symptoms - COVID AND INFLUENZA A/B NAAT, ROUTINE Su Vinson APRN.LINDA [facility] 03-18-2023 Note HNO ID: [id number] Author: Tran Garcia APRN.LINDA Service: ? Author Type: Nurse Practitioner Type: Progress Notes Filed: 03/18/2023 10:26 AM Note Text: Triage Note: HPI Tessy Ogden is a 32 year old female who presents today for CC of right hand pain and injury that started last night. She fell landing on outer area of right hand, she has significant swelling, bruising, and pain in 4th - 5th metacarpal area, with decreased cap refill and decreased sensation in fingers. Due to presenting injury, patient referred to ED for further treatment. Tran Garcia APRN.CNP [facility] 03-18-2023 History of Presen t illness Narrative Triage Note: HPI Tessy Ogden is a 32 year old female who presents today for CC of right hand pain and injury that started last night. She fell landing on outer area of right hand, she has significant swelling, bruising, and pain in 4th - 5th metacarpal area, with decreased cap refill and decreased sensation in fingers. Due to presenting injury, patient referred to ED for further treatment. Tran Garcia APRN.LINDA documented in this encounter [facility] 11-21-2022 Note HNO ID: [id number] Author: NOLA June Service: ? Author Type: Physician Photoengraver Type: Progress Notes Filed: 11/21/2022 2:08 PM Note Text: This note was created using [employer]. Subjective Tessy Ogden is a 32 year old female. HPI 32-year-old female presents for chills, body aches. Patient states she has had body aches, headache and chills since yesterday. No fevers. No cough, congestion, sore throat or other URI symptoms. No vomiting or diarrhea. States that her parents are sick with GI symptoms and achiness. Patient has not gotten any GI symptoms yet. She has not done a home COVID test. No other complaints PAST MEDICAL HISTORY Diagnosis Date Acid reflux Depression PAST SURGICAL HISTORY Procedure Laterality Date INSERTION OF IUD 10/15/2014 REMOVE IUD 12/2015 ALLERGIES Patient has no known allergies. MEDICATIONS DULoxetine (CYMBALTA) 30 mg capsule TAKE 30MG DAILY (1 CAP) FOR THE FIRST 7 DAYS, THEN INCREASE TO 60MG DAILY (2 CAPS) clonazePAM (KLONOPIN) 0.5 mg tablet Take 0.5 mg by mouth as needed. LIDOCAINE VISCOUS 2 % solution Take 5-10 mL by mouth as needed. (Patient not taking: No sig reported) sertraline (ZOLOFT) 50 mg tablet TAKE 1 TABLET BY MOUTH EVERY DAY ondansetron orally disintegrating (ZOFRAN ODT) 4 mg disintegrating tablet Take 1 tablet by mouth every 8 hours as needed. (Patient not taking: Reported on 10/04/2022) dicyclomine (BENTYL) 10 mg capsule Take 1 capsule by mouth every 8 hours as needed. (Patient not taking: No sig reported) ondansetron orally disintegrating (ZOFRAN ODT) 4 mg disintegrating tablet Take 1 tablet by mouth every 6 hours as needed for nausea/vomiting. (Patient not taking: No sig reported) dextromethorphan polistirex ER (DELSYM) 30 mg/5 mL oral liquid Take 10 mL by mouth twice daily. (Patient not taking: Reported on 10/04/2022) Levonorgestrel-Ethinyl Estrad (LARISSIA) 0.1mg - 20mcg per tablet Take 1 tablet by mouth once daily. (Patient not taking: No sig reported) FAMILY HISTORY Problem Relation Age of Onset Thyroid Mother hypo Heart Father other (migraines) Sister Heart Maternal Grandfather Heart Paternal Grandfather Social History Tobacco Use Smoking status: Some Days Types: Cigarettes Smokeless tobacco: Never Vaping Use Vaping Use: Never used Substance Use Topics Alcohol use: Yes Comment: occ Drug use: No Review of Systems Constitutional: Positive for fatigue. Negative for chills and fever. HENT: Negative for congestion, ear pain and sore throat. Respiratory: Negative for cough and shortness of breath. Cardiovascular: Negative for chest pain. Gastrointestinal: Negative for abdominal pain, diarrhea and vomiting. Musculoskeletal: Positive for myalgias. Neurological: Positive for headaches. Objective BP 122/80 Pulse 79 Temp 36.6 ?C (97.9 ?F) (Tympanic) Resp 18 Wt 79.1 kg (174 lb 6.4 oz) LMP 10/30/2022 (Within Days) SpO2 97% BMI 29.02 kg/m? Physical Exam Vitals and nursing note reviewed. Constitutional: General: She is not in acute distress. Appearance: Normal appearance. She is not toxic-appearing. HENT: Right Ear: Tympanic membrane and ear canal normal. Left Ear: Tympanic membrane and ear canal normal. Nose: Nose normal. Mouth/Throat: Mouth: Mucous membranes are moist. Pharynx: No oropharyngeal exudate or posterior oropharyngeal erythema. Eyes: Conjunctiva/sclera: Conjunctivae normal. Cardiovascular: Rate and Rhythm: Normal rate and regular rhythm. Pulmonary: Effort: Pulmonary effort is normal. Breath sounds: Normal breath sounds. Neurological: Mental Status: She is alert. Assessment and Plan ASSESSMENT/PLAN: 1. Viral illness - ICD9: 079.99, ICD10: B34.9 - Discussed viral etiology and rationale for treatment. - Symptomatic treatment with prn analgesia - Supportive care with fluids and rest - Declines COVID/flu swab. States she will do a home test. -Recommend bland diet, rest, Tylenol/Motrin, plenty of fluids. Diagnosis and treatment plan were discussed and questions were answered to the patient's satisfaction. Pt acknowledged understanding of concepts and follow up plan. Specific signs and symptoms that would indicate the need for higher level of care were discussed in detail warranting prompt ER evaluation. NOLA June [facility] 11-21-2022 History of Presen t illness Narrative This note was created using [employer]. Subjective Tessy Ogden is a 32 year old female. HPI 32-year-old female presents for chills, body aches. Patient states she has had body aches, headache and chills since yesterday. No fevers. No cough, congestion, sore throat or other URI symptoms. No vomiting or diarrhea. States that her parents are sick with GI symptoms and achiness. Patient has not gotten any GI symptoms yet. She has not done a home COVID test. No other complaints PAST MEDICAL HISTORY Diagnosis Date Acid reflux Depression PAST SURGICAL HISTORY Procedure Laterality Date INSERTION OF IUD 10/15/2014 REMOVE IUD 12/2015 ALLERGIES Patient has no known allergies. MEDICATIONS DULoxetine (CYMBALTA) 30 mg capsule TAKE 30MG DAILY (1 CAP) FOR THE FIRST 7 DAYS, THEN INCREASE TO 60MG DAILY (2 CAPS) clonazePAM (KLONOPIN) 0.5 mg tablet Take 0.5 mg by mouth as needed. LIDOCAINE VISCOUS 2 % solution Take 5-10 mL by mouth as needed. (Patient not taking: No sig reported) sertraline (ZOLOFT) 50 mg tablet TAKE 1 TABLET BY MOUTH EVERY DAY ondansetron orally disintegrating (ZOFRAN ODT) 4 mg disintegrating tablet Take 1 tablet by mouth every 8 hours as needed. (Patient not taking: Reported on 10/04/2022) dicyclomine (BENTYL) 10 mg capsule Take 1 capsule by mouth every 8 hours as needed. (Patient not taking: No sig reported) ondansetron orally disintegrating (ZOFRAN ODT) 4 mg disintegrating tablet Take 1 tablet by mouth every 6 hours as needed for nausea/vomiting. (Patient not taking: No sig reported) dextromethorphan polistirex ER (DELSYM) 30 mg/5 mL oral liquid Take 10 mL by mouth twice daily. (Patient not taking: Reported on 10/04/2022) Levonorgestrel-Ethinyl Estrad (LARISSIA) 0.1mg - 20mcg per tablet Take 1 tablet by mouth once daily. (Patient not taking: No sig reported) FAMILY HISTORY Problem Relation Age of Onset Thyroid Mother hypo Heart Father other (migraines) Sister Heart Maternal Grandfather Heart Paternal Grandfather Social History Tobacco Use Smoking status: Some Days Types: Cigarettes Smokeless tobacco: Never Vaping Use Vaping Use: Never used Substance Use Topics Alcohol use: Yes Comment: occ Drug use: No Review of Systems Constitutional: Positive for fatigue. Negative for chills and fever. HENT: Negative for congestion, ear pain and sore throat. Respiratory: Negative for cough and shortness of breath. Cardiovascular: Negative for chest pain. Gastrointestinal: Negative for abdominal pain, diarrhea and vomiting. Musculoskeletal: Positive for myalgias. Neurological: Positive for headaches. Objective BP 122/80 Pulse 79 Temp 36.6 C (97.9 F) (Tympanic) Resp 18 Wt 79.1 kg (174 lb 6.4 oz) LMP 10/30/2022 (Within Days) SpO2 97% BMI 29.02 kg/m Physical Exam Vitals and nursing note reviewed. Constitutional: General: She is not in acute distress. Appearance: Normal appearance. She is not toxic-appearing. HENT: Right Ear: Tympanic membrane and ear canal normal. Left Ear: Tympanic membrane and ear canal normal. Nose: Nose normal. Mouth/Throat: Mouth: Mucous membranes are moist. Pharynx: No oropharyngeal exudate or posterior oropharyngeal erythema. Eyes: Conjunctiva/sclera: Conjunctivae normal. Cardiovascular: Rate and Rhythm: Normal rate and regular rhythm. Pulmonary: Effort: Pulmonary effort is normal. Breath sounds: Normal breath sounds. Neurological: Mental Status: She is alert. Assessment and Plan ASSESSMENT/PLAN: 1. Viral illness - ICD9: 079.99, ICD10: B34.9 - Discussed viral etiology and rationale for treatment. - Symptomatic treatment with prn analgesia - Supportive care with fluids and rest - Declines COVID/flu swab. States she will do a home test. -Recommend bland diet, rest, Tylenol/Motrin, plenty of fluids. Diagnosis and treatment plan were discussed and questions were answered to the patient's satisfaction. Pt acknowledged understanding of concepts and follow up plan. Specific signs and symptoms that would indicate the need for higher level of care were discussed in detail warranting prompt ER evaluation. NOLA June documented in this encounter [facility] 11-13-2022 Note HNO ID: [id number] Author: Clair Cotto PA-C Service: ? Author Type: Physician Photoengraver Type: Progress Notes Filed: 11/13/2022 11:37 AM Note Text: This note was created using Pell[employer]. Subjective Tessy Ogden is a 32 year old female. HPI Patient presents with a chief complaint of urinary frequency, pelvic cramping over the past 2 days. She is also had some constipation. No fever. Denies back pain. Denies blood in urine. No dysuria. She did take a Plan B 2 weeks ago and had a menstrual cycle after this. She has had some vaginal discharge. Denies a new sexual partner. Review of Systems HENT: Negative. Respiratory: Negative. Cardiovascular: Negative. Gastrointestinal: Positive for constipation. Negative for abdominal pain, diarrhea, nausea and vomiting. Genitourinary: Positive for frequency, pelvic pain, urgency and vaginal discharge. Negative for dysuria, flank pain, hematuria, menstrual problem, vaginal bleeding and vaginal pain. Musculoskeletal: Negative. Skin: Negative. All other systems reviewed and are negative. PAST MEDICAL HISTORY Diagnosis Date Acid reflux Depression Current Outpatient Medications Medication Sig Dispense Refill DULoxetine (CYMBALTA) 30 mg capsule TAKE 30MG DAILY (1 CAP) FOR THE FIRST 7 DAYS, THEN INCREASE TO 60MG DAILY (2 CAPS) clonazePAM (KLONOPIN) 0.5 mg tablet Take 0.5 mg by mouth as needed. LIDOCAINE VISCOUS 2 % solution Take 5-10 mL by mouth as needed. (Patient not taking: No sig reported) 100 mL 1 sertraline (ZOLOFT) 50 mg tablet TAKE 1 TABLET BY MOUTH EVERY DAY 30 tablet 0 ondansetron orally disintegrating (ZOFRAN ODT) 4 mg disintegrating tablet Take 1 tablet by mouth every 8 hours as needed. (Patient not taking: Reported on 10/04/2022) 12 tablet 0 dicyclomine (BENTYL) 10 mg capsule Take 1 capsule by mouth every 8 hours as needed. (Patient not taking: No sig reported) 9 capsule 0 ondansetron orally disintegrating (ZOFRAN ODT) 4 mg disintegrating tablet Take 1 tablet by mouth every 6 hours as needed for nausea/vomiting. (Patient not taking: No sig reported) 15 tablet 0 dextromethorphan polistirex ER (DELSYM) 30 mg/5 mL oral liquid Take 10 mL by mouth twice daily. (Patient not taking: Reported on 10/04/2022) 89 mL 0 Levonorgestrel-Ethinyl Estrad (LARISSIA) 0.1mg - 20mcg per tablet Take 1 tablet by mouth once daily. (Patient not taking: No sig reported) 84 tablet 5 No current facility-administered medications for this visit. PAST SURGICAL HISTORY Procedure Laterality Date INSERTION OF IUD 10/15/2014 REMOVE IUD 12/2015 FAMILY HISTORY Problem Relation Age of Onset Thyroid Mother hypo Heart Father other (migraines) Sister Heart Maternal Grandfather Heart Paternal Grandfather Social History Tobacco Use Smoking status: Some Days Types: Cigarettes Smokeless tobacco: Never Vaping Use Vaping Use: Never used Substance Use Topics Alcohol use: Yes Comment: occ Drug use: No Objective BP 118/78 Pulse 82 Temp 36.5 ?C (97.7 ?F) Resp 18 Wt 81.9 kg (180 lb 9.6 oz) LMP 10/30/2022 (Within Days) SpO2 98% BMI 30.05 kg/m? Physical Exam Vitals reviewed. Constitutional: Appearance: Normal appearance. HENT: Head: Normocephalic and atraumatic. Cardiovascular: Rate and Rhythm: Normal rate and regular rhythm. Heart sounds: Normal heart sounds. Pulmonary: Effort: Pulmonary effort is normal. Breath sounds: Normal breath sounds. Abdominal: General: Abdomen is flat. There is no distension. Palpations: Abdomen is soft. Tenderness: There is no right CVA tenderness or left CVA tenderness. Comments: Mild suprapubic tenderness on palpation. No guarding or rebound. No rlq or llq ttp. Skin: General: Skin is warm and dry. Neurological: Mental Status: She is alert. Assessment and Plan ASSESSMENT/PLAN: 1. Urinary frequency - ICD9: 788.41, ICD10: R35.0 (primary diagnosis) urine dip was negative, will send for culture. test was negative. - UA DIP, URINE (POC) - URINE CULTURE - HCG QUAL UR B/O 2. Vaginal discharge - ICD9: 623.5, ICD10: N89.8 Swabs sent, will treat based on results. Discussed follow-up with PCP. - GC/CHLAMYDIA DNA DET - BACTERIAL VAGINOSIS AMPLIFICATION - ARMANDO / TRICHOMONAS AMPLIFICATION Clair Cotto PA-C [facility] 11-13-2022 History of Presen t illness Narrative This note was created using [employer]. Subjective Tessy Ogden is a 32 year old female. HPI Patient presents with a chief complaint of urinary frequency, pelvic cramping over the past 2 days. She is also had some constipation. No fever. Denies back pain. Denies blood in urine. No dysuria. She did take a Plan B 2 weeks ago and had a menstrual cycle after this. She has had some vaginal discharge. Denies a new sexual partner. Review of Systems HENT: Negative. Respiratory: Negative. Cardiovascular: Negative. Gastrointestinal: Positive for constipation. Negative for abdominal pain, diarrhea, nausea and vomiting. Genitourinary: Positive for frequency, pelvic pain, urgency and vaginal discharge. Negative for dysuria, flank pain, hematuria, menstrual problem, vaginal bleeding and vaginal pain. Musculoskeletal: Negative. Skin: Negative. All other systems reviewed and are negative. PAST MEDICAL HISTORY Diagnosis Date Acid reflux Depression Current Outpatient Medications Medication Sig Dispense Refill DULoxetine (CYMBALTA) 30 mg capsule TAKE 30MG DAILY (1 CAP) FOR THE FIRST 7 DAYS, THEN INCREASE TO 60MG DAILY (2 CAPS) clonazePAM (KLONOPIN) 0.5 mg tablet Take 0.5 mg by mouth as needed. LIDOCAINE VISCOUS 2 % solution Take 5-10 mL by mouth as needed. (Patient not taking: No sig reported) 100 mL 1 sertraline (ZOLOFT) 50 mg tablet TAKE 1 TABLET BY MOUTH EVERY DAY 30 tablet 0 ondansetron orally disintegrating (ZOFRAN ODT) 4 mg disintegrating tablet Take 1 tablet by mouth every 8 hours as needed. (Patient not taking: Reported on 10/04/2022) 12 tablet 0 dicyclomine (BENTYL) 10 mg capsule Take 1 capsule by mouth every 8 hours as needed. (Patient not taking: No sig reported) 9 capsule 0 ondansetron orally disintegrating (ZOFRAN ODT) 4 mg disintegrating tablet Take 1 tablet by mouth every 6 hours as needed for nausea/vomiting. (Patient not taking: No sig reported) 15 tablet 0 dextromethorphan polistirex ER (DELSYM) 30 mg/5 mL oral liquid Take 10 mL by mouth twice daily. (Patient not taking: Reported on 10/04/2022) 89 mL 0 Levonorgestrel-Ethinyl Estrad (LARISSIA) 0.1mg - 20mcg per tablet Take 1 tablet by mouth once daily. (Patient not taking: No sig reported) 84 tablet 5 No current facility-administered medications for this visit. PAST SURGICAL HISTORY Procedure Laterality Date INSERTION OF IUD 10/15/2014 REMOVE IUD 12/2015 FAMILY HISTORY Problem Relation Age of Onset Thyroid Mother hypo Heart Father other (migraines) Sister Heart Maternal Grandfather Heart Paternal Grandfather Social History Tobacco Use Smoking status: Some Days Types: Cigarettes Smokeless tobacco: Never Vaping Use Vaping Use: Never used Substance Use Topics Alcohol use: Yes Comment: occ Drug use: No Objective BP 118/78 Pulse 82 Temp 36.5 C (97.7 F) Resp 18 Wt 81.9 kg (180 lb 9.6 oz) LMP 10/30/2022 (Within Days) SpO2 98% BMI 30.05 kg/m Physical Exam Vitals reviewed. Constitutional: Appearance: Normal appearance. HENT: Head: Normocephalic and atraumatic. Cardiovascular: Rate and Rhythm: Normal rate and regular rhythm. Heart sounds: Normal heart sounds. Pulmonary: Effort: Pulmonary effort is normal. Breath sounds: Normal breath sounds. Abdominal: General: Abdomen is flat. There is no distension. Palpations: Abdomen is soft. Tenderness: There is no right CVA tenderness or left CVA tenderness. Comments: Mild suprapubic tenderness on palpation. No guarding or rebound. No rlq or llq ttp. Skin: General: Skin is warm and dry. Neurological: Mental Status: She is alert. Assessment and Plan ASSESSMENT/PLAN: 1. Urinary frequency - ICD9: 788.41, ICD10: R35.0 (primary diagnosis) urine dip was negative, will send for culture. test was negative. - UA DIP, URINE (POC) - URINE CULTURE - HCG QUAL UR B/O 2. Vaginal discharge - ICD9: 623.5, ICD10: N89.8 Swabs sent, will treat based on results. Discussed follow-up with PCP. - GC/CHLAMYDIA DNA DET - BACTERIAL VAGINOSIS AMPLIFICATION - ARMANDO / TRICHOMONAS AMPLIFICATION Clair Cotto PA-C documented in this encounter [facility] 10-12-2022 Note HNO ID: [id number] Author: Haydee Prater APRN.CHRISTIAN COUNSELOR Service: ? Author Type: Nurse Practitioner Type: Progress Notes Filed: 10/12/2022 1:13 PM Note Text: Subjective Diarrhea Associated symptoms include vomiting, headaches and myalgias. Pertinent negatives include no abdominal pain, no chills and no cough. Tessy Ogden is a 32 year old female who presents with one week of bodyaches, fatigue, headache, occasional vomiting and diarrhea. She has not had a fever. No known sick contacts. She took advil at home for body aches. She took a COVID test at home which was negative. Review of Systems Constitutional: Negative for chills and fever. HENT: Negative for congestion, ear pain and sore throat. Respiratory: Negative for cough. Cardiovascular: Negative. Gastrointestinal: Positive for diarrhea, nausea and vomiting. Negative for abdominal pain. Musculoskeletal: Positive for myalgias. Neurological: Positive for headaches. BP 122/80 Pulse 77 Temp 36.7 ?C (98.1 ?F) (Tympanic) Resp 18 Wt 78.4 kg (172 lb 12.8 oz) LMP 05/04/2022 (Exact Date) SpO2 98% BMI 28.76 kg/m? PAST MEDICAL HISTORY Diagnosis Date Acid reflux Depression PAST SURGICAL HISTORY Procedure Laterality Date INSERTION OF IUD 10/15/2014 REMOVE IUD 12/2015 ALLERGIES Patient has no known allergies. MEDICATIONS sertraline (ZOLOFT) 50 mg tablet TAKE 1 TABLET BY MOUTH EVERY DAY clonazePAM (KLONOPIN) 0.5 mg tablet Take 0.5 mg by mouth as needed. LIDOCAINE VISCOUS 2 % solution Take 5-10 mL by mouth as needed. (Patient not taking: No sig reported) ondansetron orally disintegrating (ZOFRAN ODT) 4 mg disintegrating tablet Take 1 tablet by mouth every 8 hours as needed. (Patient not taking: Reported on 10/04/2022) dicyclomine (BENTYL) 10 mg capsule Take 1 capsule by mouth every 8 hours as needed. (Patient not taking: No sig reported) ondansetron orally disintegrating (ZOFRAN ODT) 4 mg disintegrating tablet Take 1 tablet by mouth every 6 hours as needed for nausea/vomiting. (Patient not taking: No sig reported) dextromethorphan polistirex ER (DELSYM) 30 mg/5 mL oral liquid Take 10 mL by mouth twice daily. (Patient not taking: Reported on 10/04/2022) Levonorgestrel-Ethinyl Estrad (LARISSIA) 0.1mg - 20mcg per tablet Take 1 tablet by mouth once daily. (Patient not taking: No sig reported) FAMILY HISTORY Problem Relation Age of Onset Thyroid Mother hypo Heart Father other (migraines) Sister Heart Maternal Grandfather Heart Paternal Grandfather Social History Tobacco Use Smoking status: Some Days Types: Cigarettes Smokeless tobacco: Never Vaping Use Vaping Use: Never used Substance Use Topics Alcohol use: Yes Comment: occ Drug use: No Objective Physical Exam Vitals and nursing note reviewed. Constitutional: Appearance: Normal appearance. HENT: Right Ear: Tympanic membrane, ear canal and external ear normal. Left Ear: Tympanic membrane, ear canal and external ear normal. Nose: Nose normal. No congestion or rhinorrhea. Mouth/Throat: Mouth: Mucous membranes are moist. Pharynx: Oropharynx is clear. Uvula midline. No oropharyngeal exudate or posterior oropharyngeal erythema. Cardiovascular: Rate and Rhythm: Normal rate and regular rhythm. Heart sounds: Normal heart sounds. Pulmonary: Effort: Pulmonary effort is normal. No respiratory distress. Breath sounds: Normal breath sounds. No wheezing or rales. Musculoskeletal: Cervical back: Neck supple. Lymphadenopathy: Cervical: No cervical adenopathy. Skin: General: Skin is warm and dry. Findings: No erythema or rash. Neurological: Mental Status: She is alert. ASSESSMENT/PLAN: 1. Viral illness - ICD9: 079.99, ICD10: B34.9 - Discussed viral etiology and rationale for treatment. - Symptomatic treatment with prn analgesia - Supportive care with fluids and rest - offered COVID, flu testing, patient declined. - Follow-up with your PCP in 3-5 days if symptoms have not improved or sooner if symptoms worsen - Discussed red flags and need for immediate medical evaluation if any occur. - Discussed supportive care treatment with fluids, rest and analgesia. - Discussed expected course of illness Haydee Prater APRN.[facility] 10-12-2022 History of Presen t illness Narrative Subjective Diarrhea Associated symptoms include vomiting, headaches and myalgias. Pertinent negatives include no abdominal pain, no chills and no cough. Tessy Ogden is a 32 year old female who presents with one week of bodyaches, fatigue, headache, occasional vomiting and diarrhea. She has not had a fever. No known sick contacts. She took advil at home for body aches. She took a COVID test at home which was negative. Review of Systems Constitutional: Negative for chills and fever. HENT: Negative for congestion, ear pain and sore throat. Respiratory: Negative for cough. Cardiovascular: Negative. Gastrointestinal: Positive for diarrhea, nausea and vomiting. Negative for abdominal pain. Musculoskeletal: Positive for myalgias. Neurological: Positive for headaches. BP 122/80 Pulse 77 Temp 36.7 C (98.1 F) (Tympanic) Resp 18 Wt 78.4 kg (172 lb 12.8 oz) LMP 05/04/2022 (Exact Date) SpO2 98% BMI 28.76 kg/m PAST MEDICAL HISTORY Diagnosis Date Acid reflux Depression PAST SURGICAL HISTORY Procedure Laterality Date INSERTION OF IUD 10/15/2014 REMOVE IUD 12/2015 ALLERGIES Patient has no known allergies. MEDICATIONS sertraline (ZOLOFT) 50 mg tablet TAKE 1 TABLET BY MOUTH EVERY DAY clonazePAM (KLONOPIN) 0.5 mg tablet Take 0.5 mg by mouth as needed. LIDOCAINE VISCOUS 2 % solution Take 5-10 mL by mouth as needed. (Patient not taking: No sig reported) ondansetron orally disintegrating (ZOFRAN ODT) 4 mg disintegrating tablet Take 1 tablet by mouth every 8 hours as needed. (Patient not taking: Reported on 10/04/2022) dicyclomine (BENTYL) 10 mg capsule Take 1 capsule by mouth every 8 hours as needed. (Patient not taking: No sig reported) ondansetron orally disintegrating (ZOFRAN ODT) 4 mg disintegrating tablet Take 1 tablet by mouth every 6 hours as needed for nausea/vomiting. (Patient not taking: No sig reported) dextromethorphan polistirex ER (DELSYM) 30 mg/5 mL oral liquid Take 10 mL by mouth twice daily. (Patient not taking: Reported on 10/04/2022) Levonorgestrel-Ethinyl Estrad (LARISSIA) 0.1mg - 20mcg per tablet Take 1 tablet by mouth once daily. (Patient not taking: No sig reported) FAMILY HISTORY Problem Relation Age of Onset Thyroid Mother hypo Heart Father other (migraines) Sister Heart Maternal Grandfather Heart Paternal Grandfather Social History Tobacco Use Smoking status: Some Days Types: Cigarettes Smokeless tobacco: Never Vaping Use Vaping Use: Never used Substance Use Topics Alcohol use: Yes Comment: occ Drug use: No Objective Physical Exam Vitals and nursing note reviewed. Constitutional: Appearance: Normal appearance. HENT: Right Ear: Tympanic membrane, ear canal and external ear normal. Left Ear: Tympanic membrane, ear canal and external ear normal. Nose: Nose normal. No congestion or rhinorrhea. Mouth/Throat: Mouth: Mucous membranes are moist. Pharynx: Oropharynx is clear. Uvula midline. No oropharyngeal exudate or posterior oropharyngeal erythema. Cardiovascular: Rate and Rhythm: Normal rate and regular rhythm. Heart sounds: Normal heart sounds. Pulmonary: Effort: Pulmonary effort is normal. No respiratory distress. Breath sounds: Normal breath sounds. No wheezing or rales. Musculoskeletal: Cervical back: Neck supple. Lymphadenopathy: Cervical: No cervical adenopathy. Skin: General: Skin is warm and dry. Findings: No erythema or rash. Neurological: Mental Status: She is alert. ASSESSMENT/PLAN: 1. Viral illness - ICD9: 079.99, ICD10: B34.9 - Discussed viral etiology and rationale for treatment. - Symptomatic treatment with prn analgesia - Supportive care with fluids and rest - offered COVID, flu testing, patient declined. - Follow-up with your PCP in 3-5 days if symptoms have not improved or sooner if symptoms worsen - Discussed red flags and need for immediate medical evaluation if any occur. - Discussed supportive care treatment with fluids, rest and analgesia. - Discussed expected course of illness Haydee Prater APRN.CNP documented in this encounter [facility] 10-12-2022 Instructions Haydee Prater APRN.CNP - 10/12/2022 1:11 PM EDT ASSESSMENT/PLAN: 1. Viral illness - ICD9: 079.99, ICD10: B34.9 - Discussed viral etiology and rationale for treatment. - Symptomatic treatment with prn analgesia - Supportive care with fluids and rest - offered COVID, flu testing, patient declined. - Follow-up with your PCP in 3-5 days if symptoms have not improved or sooner if symptoms worsen - Discussed red flags and need for immediate medical evaluation if any occur. - Discussed supportive care treatment with fluids, rest and analgesia. - Discussed expected course of illness Haydee Prater APRN.CHRISTIAN COUNSELOR Treatment for Viral Upper Respiratory Tract Infections Your body will kill off the virus by itself. Additionally, you can prime your body's immune system. This may help you get better more quickly. Drink lots of fluids Make sure you are eating well Get plenty of rest We do not have any medications that kill off these viruses. Antibiotics are used to treat bacterial infections; however, they are not active against viral infections. There are some things that might help you feel better, though. Vaporizers, humidifiers, hot showers, and hot fluids help open respiratory and sinus passages [place] [facility] [place] may offer relief of nasal and head congestion Jose D's Vapor Rub may relieve congestion Tylenol and Advil help control fevers and headaches Salt water gargles help relieve sore throats Chloraceptic spray or throat lozenges may also help relieve sore throat symptoms Occasionally, viral infections turn into something more serious. You should see your doctor or return to the Urgent Care if: You have fevers for longer than five days You have fevers above 102 degrees You are still sick after 10 days You have shortness of breath or wheezing After several days you are getting worse rather than better documented in this encounter [facility] 10-04-2022 Note HNO ID: [id number] Author: Haydee Prater APRN.CHRISTIAN COUNSELOR Service: ? Author Type: Nurse Practitioner Type: Progress Notes Filed: 10/04/2022 11:11 AM Note Text: Subjective Headache Associated symptoms include nausea and vomiting. Pertinent negatives include no fever and no shortness of breath. Tessy Ogden is a 32 year old female who presents with sick symptoms since last night. Symptoms include: Fever (>100.4F): No Chills: No Cough: No Shortness of breath: No Difficulty breathing: No Fatigue: YES Muscle aches:YES Headache: YES New loss of smell or taste: No Sore throat: YES Nasal congestion: YES Rhinorrhea:No Nausea: YES Vomiting: YES Diarrhea: YES Recent sick contacts: YES- daughter with strep last week She has not taken any medication today. Review of Systems Constitutional: Negative for chills and fever. HENT: Positive for congestion and sore throat. Negative for ear pain. Respiratory: Negative for cough and shortness of breath. Cardiovascular: Negative. Gastrointestinal: Positive for diarrhea, nausea and vomiting. Negative for abdominal pain. Musculoskeletal: Positive for myalgias. Skin: Negative. Neurological: Positive for headaches. Objective Physical Exam Vitals and nursing note reviewed. HENT: Right Ear: Tympanic membrane, ear canal and external ear normal. Left Ear: Tympanic membrane, ear canal and external ear normal. Nose: Congestion present. Mouth/Throat: Mouth: Mucous membranes are moist. Pharynx: Uvula midline. Posterior oropharyngeal erythema present. No oropharyngeal exudate. Cardiovascular: Rate and Rhythm: Normal rate and regular rhythm. Heart sounds: Normal heart sounds. Pulmonary: Effort: Pulmonary effort is normal. No respiratory distress. Breath sounds: Normal breath sounds. No wheezing or rales. Musculoskeletal: Cervical back: Neck supple. Lymphadenopathy: Cervical: No cervical adenopathy. Skin: General: Skin is warm and dry. Findings: No erythema or rash. Neurological: Mental Status: She is alert. ASSESSMENT/PLAN: 1. Exposure to strep throat - ICD9: V01.89, ICD10: Z20.818 (primary diagnosis) - STREP A MOLECULAR (POC)-negative in office 2. Flu-like symptoms - ICD9: 780.99, ICD10: R68.89 - INFLUENZA AANDB MOLECULAR (POC)- negative in office. - 2019 CORONAVIRUS - Follow-up with your PCP in 3-5 days if symptoms have not improved or sooner if symptoms worsen - Discussed red flags and need for immediate medical evaluation if any occur. - Discussed supportive care treatment with fluids, rest and analgesia. - Discussed expected course of illness Haydee Prater APRN.CNP [facility] 10-04-2022 Instructions Haydee Prater APRN.CNP - 10/04/2022 11:07 AM EST ASSESSMENT/PLAN: 1. Exposure to strep throat - ICD9: V01.89, ICD10: Z20.818 (primary diagnosis) - STREP A MOLECULAR (POC)-negative in office 2. Flu-like symptoms - ICD9: 780.99, ICD10: R68.89 - INFLUENZA A&B MOLECULAR (POC)- negative in office. - 2019 CORONAVIRUS - Follow-up with your PCP in 3-5 days if symptoms have not improved or sooner if symptoms worsen - Discussed red flags and need for immediate medical evaluation if any occur. - Discussed supportive care treatment with fluids, rest and analgesia. - Discussed expected course of illness Haydee Prater APRN.LINDA Treatment for Viral Upper Respiratory Tract Infections Your body will kill off the virus by itself. Additionally, you can prime your body's immune system. This may help you get better more quickly. Drink lots of fluids Make sure you are eating well Get plenty of rest We do not have any medications that kill off these viruses. Antibiotics are used to treat bacterial infections; however, they are not active against viral infections. There are some things that might help you feel better, though. Vaporizers, humidifiers, hot showers, and hot fluids help open respiratory and sinus passages [place] [place] may offer relief of nasal and head congestion Jose D's Vapor Rub may relieve congestion Tylenol and Advil help control fevers and headaches Salt water gargles help relieve sore throats Chloraceptic spray or throat lozenges may also help relieve sore throat symptoms Occasionally, viral infections turn into something more serious. You should see your doctor or return to the Urgent Care if: You have fevers for longer than five days You have fevers above 102 degrees You are still sick after 10 days You have shortness of breath or wheezing After several days you are getting worse rather than better documented in this encounter [facility] 10-04-2022 History of Presen t illness Narrative Subjective Headache Associated symptoms include nausea and vomiting. Pertinent negatives include no fever and no shortness of breath. Tessy Ogden is a 32 year old female who presents with sick symptoms since last night. Symptoms include: Fever (>100.4F): No Chills: No Cough: No Shortness of breath: No Difficulty breathing: No Fatigue: YES Muscle aches:YES Headache: YES New loss of smell or taste: No Sore throat: YES Nasal congestion: YES Rhinorrhea:No Nausea: YES Vomiting: YES Diarrhea: YES Recent sick contacts: YES- daughter with strep last week She has not taken any medication today. Review of Systems Constitutional: Negative for chills and fever. HENT: Positive for congestion and sore throat. Negative for ear pain. Respiratory: Negative for cough and shortness of breath. Cardiovascular: Negative. Gastrointestinal: Positive for diarrhea, nausea and vomiting. Negative for abdominal pain. Musculoskeletal: Positive for myalgias. Skin: Negative. Neurological: Positive for headaches. Objective Physical Exam Vitals and nursing note reviewed. HENT: Right Ear: Tympanic membrane, ear canal and external ear normal. Left Ear: Tympanic membrane, ear canal and external ear normal. Nose: Congestion present. Mouth/Throat: Mouth: Mucous membranes are moist. Pharynx: Uvula midline. Posterior oropharyngeal erythema present. No oropharyngeal exudate. Cardiovascular: Rate and Rhythm: Normal rate and regular rhythm. Heart sounds: Normal heart sounds. Pulmonary: Effort: Pulmonary effort is normal. No respiratory distress. Breath sounds: Normal breath sounds. No wheezing or rales. Musculoskeletal: Cervical back: Neck supple. Lymphadenopathy: Cervical: No cervical adenopathy. Skin: General: Skin is warm and dry. Findings: No erythema or rash. Neurological: Mental Status: She is alert. ASSESSMENT/PLAN: 1. Exposure to strep throat - ICD9: V01.89, ICD10: Z20.818 (primary diagnosis) - STREP A MOLECULAR (POC)-negative in office 2. Flu-like symptoms - ICD9: 780.99, ICD10: R68.89 - INFLUENZA A&B MOLECULAR (POC)- negative in office. - 2019 CORONAVIRUS - Follow-up with your PCP in 3-5 days if symptoms have not improved or sooner if symptoms worsen - Discussed red flags and need for immediate medical evaluation if any occur. - Discussed supportive care treatment with fluids, rest and analgesia. - Discussed expected course of illness Haydee Prater APRN.LINDA documented in this encounter [facility] 08-10-2022 Miscellaneous Notes Phone call placed left a detailed message on patients identified voicemail. Romi Ramirez LPN Please notify that mono was negative, f/u as discussed during visit. documented in this encounter [facility] 08-09-2022 Note HNO ID: [id number] Author: Su Vinson APRN.LINDA Service: ? Author Type: Nurse Practitioner Type: Progress Notes Filed: 08/09/2022 11:25 AM Note Text: Subjective HPI HPI Tessy Ogden is a 32 year old female who presents today for CC of st for 2 weeks, vomiting/diarrhea for 3 days. Has tried otc medication for relief. Symptoms are worsened by nothing. Risk factors no known sick exposures. Denies blood in stool/vomit. Mild abd pain. Seen in ER, labs negative. No stool or vomit yet today as of time exam. Denies possibility of being . .Patient presents with: Sore Throat: fatigue, upset stomach, loss of appetite x 3-4 days PAST MEDICAL HISTORY Diagnosis Date Acid reflux Depression PAST SURGICAL HISTORY Procedure Laterality Date INSERTION OF IUD 10/15/2014 REMOVE IUD 12/2015 ALLERGIES Patient has no known allergies. MEDICATIONS sertraline (ZOLOFT) 50 mg tablet TAKE 1 TABLET BY MOUTH EVERY DAY ondansetron orally disintegrating (ZOFRAN ODT) 4 mg disintegrating tablet Take 1 tablet by mouth every 8 hours as needed. dextromethorphan polistirex ER (DELSYM) 30 mg/5 mL oral liquid Take 10 mL by mouth twice daily. clonazePAM (KLONOPIN) 0.5 mg tablet Take 0.5 mg by mouth as needed. LIDOCAINE VISCOUS 2 % solution Take 5-10 mL by mouth as needed. (Patient not taking: Reported on 08/09/2022) dicyclomine (BENTYL) 10 mg capsule Take 1 capsule by mouth every 8 hours as needed. (Patient not taking: Reported on 08/09/2022) ondansetron orally disintegrating (ZOFRAN ODT) 4 mg disintegrating tablet Take 1 tablet by mouth every 6 hours as needed for nausea/vomiting. (Patient not taking: Reported on 05/08/2022) Levonorgestrel-Ethinyl Estrad (LARISSIA) 0.1mg - 20mcg per tablet Take 1 tablet by mouth once daily. (Patient not taking: Reported on 09/02/2021 ) FAMILY HISTORY Problem Relation Age of Onset Thyroid Mother hypo Heart Father other (migraines) Sister Heart Maternal Grandfather Heart Paternal Grandfather Social History Tobacco Use Smoking status: Some Days Types: Cigarettes Smokeless tobacco: Never Vaping Use Vaping Use: Never used Substance Use Topics Alcohol use: Yes Comment: occ Drug use: No ROS Objective Physical Exam Constitutional: General: She is not in acute distress. Appearance: She is not toxic-appearing or diaphoretic. HENT: Head: Normocephalic and atraumatic. Nose: Nose normal. Mouth/Throat: Pharynx: Uvula midline. Posterior oropharyngeal erythema present. No pharyngeal swelling, oropharyngeal exudate or uvula swelling. Tonsils: 3+ on the right. 3+ on the left. Eyes: General: Lids are normal. No scleral icterus. Right eye: No discharge. Left eye: No discharge. Conjunctiva/sclera: Conjunctivae normal. Pupils: Pupils are equal, round, and reactive to light. Neck: Trachea: Trachea normal. Cardiovascular: Rate and Rhythm: Normal rate and regular rhythm. Heart sounds: Normal heart sounds. Pulmonary: Effort: Pulmonary effort is normal. Breath sounds: Normal breath sounds. Abdominal: General: Abdomen is flat. Bowel sounds are normal. Palpations: Abdomen is soft. There is no hepatomegaly or splenomegaly. Tenderness: There is abdominal tenderness (slight with palpation.) in the periumbilical area. Musculoskeletal: Cervical back: Normal range of motion and neck supple. Lymphadenopathy: Cervical: Cervical adenopathy present. Right cervical: Superficial cervical adenopathy present. Left cervical: Superficial cervical adenopathy present. Skin: Findings: No rash. Neurological: Mental Status: She is alert and oriented to person, place, and time. ASSESSMENT/PLAN: 1. Sore throat - ICD9: 462, ICD10: J02.9 (primary diagnosis) - suspect viral, possibly mono, will test - Alere Strep Test neg, no culture pending - Discussed supportive care treatment with fluids, rest and analgesia. - The patient should follow up in 3-5 days if symptoms persist or worsen - ALERE STREP A TEST (AG) - MONOTEST, INFECTIOUS MONO 2. Vomiting and diarrhea - ICD9: 787.03, 787.91, ICD10: R11.10, R19.7 -Discussed gentle rehydration -BRAT Diet (Bananas, Rice, Apple Sauce, [place]) -If no better in 7-10 days follow up back in clinic or with primary care provider -Follow up in the ER with signs of dehydration, increasing abdominal pain, high fever, or blood in vomit or stool. Su Vinson APRN.CNP [facility] 08-09-2022 Instructions Su Vinson APRN.CNP - 08/09/2022 11:24 AM EST ASSESSMENT/PLAN: 1. Sore throat - ICD9: 462, ICD10: J02.9 (primary diagnosis) - suspect viral - Alere Strep Test neg, no culture pending - Discussed supportive care treatment with fluids, rest and analgesia. - The patient should follow up in 3-5 days if symptoms persist or worsen - ALERE STREP A TEST (AG) - MONOTEST, INFECTIOUS MONO 2. Vomiting and diarrhea - ICD9: 787.03, 787.91, ICD10: R11.10, R19.7 -Discussed gentle rehydration -BRAT Diet (Bananas, Rice, Apple Sauce, [place]) -If no better in 7-10 days follow up back in clinic or with primary care provider -Follow up in the ER with signs of dehydration, increasing abdominal pain, high fever, or blood in vomit or stool. documented in this encounter [facility] 08-09-2022 History of Presen t illness Narrative Subjective HPI HPI Tessy Ogden is a 32 year old female who presents today for CC of st for 2 weeks, vomiting/diarrhea for 3 days. Has tried otc medication for relief. Symptoms are worsened by nothing. Risk factors no known sick exposures. Denies blood in stool/vomit. Mild abd pain. Seen in ER, labs negative. No stool or vomit yet today as of time exam. Denies possibility of being . .Patient presents with: Sore Throat: fatigue, upset stomach, loss of appetite x 3-4 days PAST MEDICAL HISTORY Diagnosis Date Acid reflux Depression PAST SURGICAL HISTORY Procedure Laterality Date INSERTION OF IUD 10/15/2014 REMOVE IUD 12/2015 ALLERGIES Patient has no known allergies. MEDICATIONS sertraline (ZOLOFT) 50 mg tablet TAKE 1 TABLET BY MOUTH EVERY DAY ondansetron orally disintegrating (ZOFRAN ODT) 4 mg disintegrating tablet Take 1 tablet by mouth every 8 hours as needed. dextromethorphan polistirex ER (DELSYM) 30 mg/5 mL oral liquid Take 10 mL by mouth twice daily. clonazePAM (KLONOPIN) 0.5 mg tablet Take 0.5 mg by mouth as needed. LIDOCAINE VISCOUS 2 % solution Take 5-10 mL by mouth as needed. (Patient not taking: Reported on 08/09/2022) dicyclomine (BENTYL) 10 mg capsule Take 1 capsule by mouth every 8 hours as needed. (Patient not taking: Reported on 08/09/2022) ondansetron orally disintegrating (ZOFRAN ODT) 4 mg disintegrating tablet Take 1 tablet by mouth every 6 hours as needed for nausea/vomiting. (Patient not taking: Reported on 05/08/2022) Levonorgestrel-Ethinyl Estrad (LARISSIA) 0.1mg - 20mcg per tablet Take 1 tablet by mouth once daily. (Patient not taking: Reported on 09/02/2021 ) FAMILY HISTORY Problem Relation Age of Onset Thyroid Mother hypo Heart Father other (migraines) Sister Heart Maternal Grandfather Heart Paternal Grandfather Social History Tobacco Use Smoking status: Some Days Types: Cigarettes Smokeless tobacco: Never Vaping Use Vaping Use: Never used Substance Use Topics Alcohol use: Yes Comment: occ Drug use: No ROS Objective Physical Exam Constitutional: General: She is not in acute distress. Appearance: She is not toxic-appearing or diaphoretic. HENT: Head: Normocephalic and atraumatic. Nose: Nose normal. Mouth/Throat: Pharynx: Uvula midline. Posterior oropharyngeal erythema present. No pharyngeal swelling, oropharyngeal exudate or uvula swelling. Tonsils: 3+ on the right. 3+ on the left. Eyes: General: Lids are normal. No scleral icterus. Right eye: No discharge. Left eye: No discharge. Conjunctiva/sclera: Conjunctivae normal. Pupils: Pupils are equal, round, and reactive to light. Neck: Trachea: Trachea normal. Cardiovascular: Rate and Rhythm: Normal rate and regular rhythm. Heart sounds: Normal heart sounds. Pulmonary: Effort: Pulmonary effort is normal. Breath sounds: Normal breath sounds. Abdominal: General: Abdomen is flat. Bowel sounds are normal. Palpations: Abdomen is soft. There is no hepatomegaly or splenomegaly. Tenderness: There is abdominal tenderness (slight with palpation.) in the periumbilical area. Musculoskeletal: Cervical back: Normal range of motion and neck supple. Lymphadenopathy: Cervical: Cervical adenopathy present. Right cervical: Superficial cervical adenopathy present. Left cervical: Superficial cervical adenopathy present. Skin: Findings: No rash. Neurological: Mental Status: She is alert and oriented to person, place, and time. ASSESSMENT/PLAN: 1. Sore throat - ICD9: 462, ICD10: J02.9 (primary diagnosis) - suspect viral, possibly mono, will test - Alere Strep Test neg, no culture pending - Discussed supportive care treatment with fluids, rest and analgesia. - The patient should follow up in 3-5 days if symptoms persist or worsen - ALERE STREP A TEST (AG) - MONOTEST, INFECTIOUS MONO 2. Vomiting and diarrhea - ICD9: 787.03, 787.91, ICD10: R11.10, R19.7 -Discussed gentle rehydration -BRAT Diet (Bananas, Rice, Apple Sauce, [place]) -If no better in 7-10 days follow up back in clinic or with primary care provider -Follow up in the ER with signs of dehydration, increasing abdominal pain, high fever, or blood in vomit or stool. Su Vinson APRN.LINDA documented in this encounter [facility] 08-08-2022 Hospital Discharg e instructions Patient Education 08/07/2022 22:35:42 DEHYDRATION (6y-Adult) Dehydration (Adult) Dehydration occurs when your body loses too much fluid. This may be the result of vomiting a lot or from diarrhea, sweating a lot, or a high fever. It may also happen if you don t drink enough fluid when you re sick. Misuse of diuretics (water pills) can also be a cause. Symptoms include thirst and feeling dizzy, weak, fatigued, or very drowsy. The diet described below is usually enough to treat most cases. Sometimes you may need medicine. Home care Follow these guidelines for home care: Drink at least 12 8-ounce glasses of fluid every day to overcome the dehydration. Fluid may include water; orange juice; lemonade; apple, grape, and cranberry juice; clear fruit drinks; electrolyte replacement and sports drinks; and teas and coffee without caffeine. If you have been diagnosed with a kidney disease, ask your doctor how much and what types of fluids you should drink to prevent dehydration. If you have kidney disease, drinking too much fluid can cause it build up in the your body and be dangerous to your health. If you have fever, muscle aching, or headache from a viral syndrome, you may use acetaminophen or ibuprofen, unless another medicine was prescribed for this. If you have chronic liver or kidney disease or ever had a stomach ulcer or GI bleeding, talk with your doctor before using these medicines. Don't take aspirin if you are younger than 18 and are ill with a fever. Aspirin raises the chance for severe liver injury. Follow-up care Follow up with your health care provider if you don't get better in the next 24 to 48 hours. When to seek medical advice Call your health care provider right away if any of these occur: Continued vomiting (can t keep liquids down) Frequent diarrhea (more than 5 times a day); blood (red or black color) or mucus in diarrhea Blood in vomit or stool Swollen abdomen or increasing abdominal pain Weakness, dizziness, or fainting Unusually drowsy or confused Reduced urine output or extreme thirst Fever of 100.4 F (38 C) oral or higher that does not get better with fever medication [id number] [employer]. [address] [place] [address]. All rights reserved. This information is not intended as a substitute for professional medical care. Always follow your healthcare professional's instructions. Follow Up Care 08/07/2022 19:06:11 With:JAILENE SUH Address: [address] [place] [phone] When:2-4 days [facility] 08-07-2022 Note Discharge Instructions Thank you for allowing [facility] to assist you with your healthcare needs. The following is important discharge information regarding your hospital visit. Diagnosis from Today's Visit Dehydration Gastroenteritis Abdominal pain Nausea What to Do Next Instructions from Your Care Team Discharge Return to Work, School, or Sports (Return to Work, School, or Sports) - Ordered -- 08/07/22, 08/08/22, May return to: work, 08/07/22 22:35:00 EST Post Acute Orders No qualifying data available. You Need to Schedule the Following Appointments Follow Up with JAILENE SUH When Within 2-4 days Where: [address] [place] [phone] Allergies NKA Medications Please ask your primary doctor or pharmacist before taking any other medication not listed, including over the counter drugs, herbal medications, vitamins and or supplements as they may interact with your home medications. What How Much When Why Instructions Last Dose Changed ondansetron (ondansetron 4 mg oral disintegrating strip) 1 Each by mouth Three (3) times a day Dehydration Gastroenteritis Duration: 5 Days Printed Prescription Changed ondansetron (Zofran ODT 4 mg oral tablet, disintegrating) 1 tab(s) by mouth Every 4 hours as needed for Nausea/Vomiting Unchanged clonazePAM (KlonoPIN) If strength unknown select sentence below by mouth Three (3) times a day Unchanged escitalopram (Lexapro) 20 Milligram by mouth Once a day Unchanged esomeprazole (NexIUM) by mouth Once a day Unchanged Misc Medication (orthysia) by mouth Every day Unchanged omeprazole (NF) (omeprazole 40 mg oral delayed release capsule (NF)) 1 cap by mouth Once a day Please take this list to your next doctor s visit. Bring all medications you take, including over the counter medications, herbals and other supplements with you to your doctor s visit. Patients and families are reminded to discard old lists and to update any records with all medication providers or retail pharmacies. Education Materials Dehydration (Adult) Dehydration occurs when your body loses too much fluid. This may be the result of vomiting a lot or from diarrhea, sweating a lot, or a high fever. It may also happen if you don t drink enough fluid when you re sick. Misuse of diuretics (water pills) can also be a cause. Symptoms include thirst and feeling dizzy, weak, fatigued, or very drowsy. The diet described below is usually enough to treat most cases. Sometimes you may need medicine. Home care Follow these guidelines for home care: Drink at least 12 8-ounce glasses of fluid every day to overcome the dehydration. Fluid may include water; orange juice; lemonade; apple, grape, and cranberry juice; clear fruit drinks; electrolyte replacement and sports drinks; and teas and coffee without caffeine. If you have been diagnosed with a kidney disease, ask your doctor how much and what types of fluids you should drink to prevent dehydration. If you have kidney disease, drinking too much fluid can cause it build up in the your body and be dangerous to your health. If you have fever, muscle aching, or headache from a viral syndrome, you may use acetaminophen or ibuprofen, unless another medicine was prescribed for this. If you have chronic liver or kidney disease or ever had a stomach ulcer or GI bleeding, talk with your doctor before using these medicines. Don't take aspirin if you are younger than 18 and are ill with a fever. Aspirin raises the chance for severe liver injury. Follow-up care Follow up with your health care provider if you don't get better in the next 24 to 48 hours. When to seek medical advice Call your health care provider right away if any of these occur: Continued vomiting (can t keep liquids down) Frequent diarrhea (more than 5 times a day); blood (red or black color) or mucus in diarrhea Blood in vomit or stool Swollen abdomen or increasing abdominal pain Weakness, dizziness, or fainting Unusually drowsy or confused Reduced urine output or extreme thirst Fever of 100.4 F (38 C) oral or higher that does not get better with fever medication [id number] [employer]. [address] [place] [address]. All rights reserved. This information is not intended as a substitute for professional medical care. Always follow your healthcare professional's instructions. Additional Information VACCINATE! IT SAVES LIVES! Members of the community who have not yet received the COVID-19 vaccine and would like to receive it can visit one of [facility] vaccine clinics. There are many vaccine clinic locations within the [facility]. For locations and available times, please visit [email or web address]. It is important to note that some COVID mobile vaccine clinics are held outdoors and may be canceled in rainy or stormy conditions. To learn more about pediatric vaccinations (ages 5-11), we invite you to visit the [facility] webpage. [email or web address] To learn more about the COVID-19 vaccine, we invite you to visit the [employer] website for a list of frequently asked questions. [email or web address] [facility] Patient Portal Access Instructions: Stay connected with your healthcare team and access your personal medical information anytime with the [facility] Patient Portal. If you would like a full copy of your medical records please contact the [facility] Medical Records Department Sunday through Sunday between 8a.m. and 4:30p.m. Please follow the directions below to access the portal: 1.Access the email account you provided upon registration to the hospital.2.Look for an invitation email from [facility].3.Open the email and access the invitation link: Accept Invitation to [facility] [employer]4.Fill in the required hwang to create your account. Sign into [email or web address] with your username and password that you created in the above steps to stay up to date. You can then view a summary of results, a summary of your visits, and the ability to download your summaries to your computer or send the information securely to a physician. Remember that your healthcare information is confidential, so carefully consider who you will allow to register on the [facility] [employer] Patient Portal for access to your information. You can also access the [facility] Patient Portal on the [employer] luiig. Simply click on Health Records under Health Data and then click on the [employer] logo. HOW TO SAFELY DISPOSE OF PRESCRIPTION MEDICATIONS Please use one of the following methods to safely dispose of your unused medications. 1.Use a drug disposal kit: the drug disposal pouch allows you to safely discard your old and unused drugs. Ask your nurse to give you one when you are discharged.2.Visit a local take-back location: Many local pharmacies and police departments have programs that collect old and unwanted prescription drugs. Call your local pharmacy or go to http://bit.HIT Community/6R8Am6z to find one close to you.3.Make use of household items: Use cat litter or old coffee grounds to dispose medications if other options are not available. Mix your drugs with these household products, seal them in an airtight container and throw it into the garbage. Call [facility]: [phone] to be sure your drugs can be disposed of in this way. Some medicines may require a different approach.4.Never flush your medications down the toilet. IF YOU HAVE BEEN PRESCRIBED AN OPIOIDS FOR PAIN If you have been prescribed an opioid (such as hydrocodone, oxycodone or morphine), it is critical to understand the possible side effects and risks of opioid pain medications. Even when taken as directed, opioids can have several side effects including: Tolerance, meaning you might need to take more of a medication for the same pain relief. Nausea, vomiting and/or constipation. Sleepiness, dizziness, dry mouth, confusion, depression or itching. Physical dependence, meaning you have withdrawal symptoms when a medication is stopped ? this can develop within a few days. KNOW YOUR RESPONSIBILITIES It is important to know exactly how much and how often to take the opioid pain medications you are prescribed. Never take opioids in higher amounts or more often than prescribed. Do not combine opioids with alcohol or other drugs that cause drowsiness, such as benzodiazepines, also known as benzos, including diazepam and alprazolam, muscle relaxants or sleep aids. Never sell or share prescription opioids. This is illegal. Store opioids in a secure place and out of reach of others (including children, family, friends and visitors). The last page(s) of this document has been signed and retained as a CHART COPY Signatures Patient Education Materials DEHYDRATION (6y-Adult) Medication Leaflets My discharge plan and instructions have been reviewed and explained to me and I,TESSY OGDEN understand my current condition and have read and understand these discharge instructions. I have received a written copy of the plan/instructions. If I have questions, I am aware that I should contact my doctor. Patient/Ring Facer Signature: Date/Time: Relationship to Patient: Witness Name/Signature: Date/Time: [facility] 07-19-2022 History of Presen t illness Narrative CC: Patient presents with: Cough: Cough, ST and bodyaches x 1 day HPI: Tessy Ogden is a 32 year old female who presents to the office with complaint of cough, nonproductive and sore throat for the past day. Symptoms are staying the same. Associated symptoms includes body aches. Denies fever, nausea, vomiting , and diarrhea. Treatments tried include nothing so far. with no relief of symptoms. Sick contacts: unknown. History of asthma, frequent episodes of bronchitis, chronic bronchitis, bronchiectasis or COPD: No Smoker: yes Seasonal/environmental allergies: No The ROS is otherwise negative. The patient's pmh, medications, allergies, and past visits are reviewed. PHYSICAL EXAM: BP 142/82 Pulse 78 Temp 36.5 C (97.7 F) (Tympanic) Resp 18 Wt 79.2 kg (174 lb 9.6 oz) LMP 05/04/2022 (Exact Date) SpO2 98% BMI 29.05 kg/m General appearance: alert, cooperative, pleasant, in no acute distress Head: Normocephalic Eyes: EOM's intact, conjunctiva pink and moist, no icterus, sclera white, non-injected Ears: Right ear: External ear/canal- Normal, TM - clear with good landmarks. Left ear: External ear/canal- Normal, TM - clear with good landmarks Oropharynx:moderate erythema, without exudates present, 2+ Neck:mild cervical adenopathy Heart: Negative. RRR without obvious murmur, gallop, or rubs. No ectopy. Lungs: clear to auscultation, without rales or wheeze, good air exchange PAST MEDICAL HISTORY Diagnosis Date Acid reflux Depression PAST SURGICAL HISTORY Procedure Laterality Date INSERTION OF IUD 10/15/2014 REMOVE IUD 12/2015 ALLERGIES Patient has no known allergies. MEDICATIONS sertraline (ZOLOFT) 50 mg tablet TAKE 1 TABLET BY MOUTH EVERY DAY ondansetron orally disintegrating (ZOFRAN ODT) 4 mg disintegrating tablet Take 1 tablet by mouth every 8 hours as needed. dicyclomine (BENTYL) 10 mg capsule Take 1 capsule by mouth every 8 hours as needed. dextromethorphan polistirex ER (DELSYM) 30 mg/5 mL oral liquid Take 10 mL by mouth twice daily. clonazePAM (KLONOPIN) 0.5 mg tablet Take 0.5 mg by mouth as needed. ondansetron orally disintegrating (ZOFRAN ODT) 4 mg disintegrating tablet Take 1 tablet by mouth every 6 hours as needed for nausea/vomiting. (Patient not taking: Reported on 05/08/2022) Levonorgestrel-Ethinyl Estrad (LARISSIA) 0.1mg - 20mcg per tablet Take 1 tablet by mouth once daily. (Patient not taking: Reported on 09/02/2021 ) FAMILY HISTORY Problem Relation Age of Onset Thyroid Mother hypo Heart Father other (migraines) Sister Heart Maternal Grandfather Heart Paternal Grandfather Social History Tobacco Use Smoking status: Some Days Types: Cigarettes Smokeless tobacco: Never Vaping Use Vaping Use: Never used Substance Use Topics Alcohol use: Yes Comment: occ Drug use: No ASSESSMENT/PLAN: 1. Sore throat - ICD9: 462, ICD10: J02.9 (primary diagnosis) - STREP A MOLECULAR (POC) - negative - COVID WITH FLUA+B, ROUTINE 2. URI, acute - ICD9: 465.9, ICD10: J06.9 - COVID WITH FLUA+B, ROUTINE Prescription instructions reviewed with patient as applicable. Potential red flag symptoms discussed with the patient. Reviewed appropriate action plan to take if red flag symptoms occur. Patient agreeable to treatment plan. Leila Spears APRN.CHRISTIAN COUNSELOR documented in this encounter [facility] 05-18-2022 History of Presen t illness Narrative This note was created using [employer]. Subjective Tessy Ogden is a 31 year old female. HPI Patient presents with diarrhea and vomiting over the past week. She states today she had vomited 5+ times. She has a couple bouts of diarrhea a day. She did test positive for COVID on the and had symptoms a couple days before that. The cough and congestion has improved from that. She denies any recent fevers. Some mild abdominal cramping. Last menstrual cycle was 10 6. She has been sexually active since then. She has had some urinary frequency. No vaginal itching or discharge. She has had some mild dysuria. No back pain. No blood in stool. No recent travel. Seh does eat out quite a bit. No recent antibiotics. Review of Systems Constitutional: Positive for fatigue. HENT: Negative. Respiratory: Negative. Cardiovascular: Negative. Gastrointestinal: Positive for abdominal pain, diarrhea, nausea and vomiting. Negative for blood in stool and constipation. Genitourinary: Positive for dysuria and frequency. Negative for hematuria, pelvic pain, urgency, vaginal discharge and vaginal pain. Musculoskeletal: Negative. Skin: Negative. All other systems reviewed and are negative. PAST MEDICAL HISTORY Diagnosis Date Acid reflux Depression Current Outpatient Medications Medication Sig Dispense Refill sertraline (ZOLOFT) 50 mg tablet Take 50 mg by mouth once daily. dextromethorphan polistirex ER (DELSYM) 30 mg/5 mL oral liquid Take 10 mL by mouth twice daily. 89 mL 0 clonazePAM (KLONOPIN) 0.5 mg tablet Take 0.5 mg by mouth as needed. ondansetron orally disintegrating (ZOFRAN ODT) 4 mg disintegrating tablet Take 1 tablet by mouth every 8 hours as needed. 12 tablet 0 dicyclomine (BENTYL) 10 mg capsule Take 1 capsule by mouth every 8 hours as needed. 9 capsule 0 ondansetron orally disintegrating (ZOFRAN ODT) 4 mg disintegrating tablet Take 1 tablet by mouth every 6 hours as needed for nausea/vomiting. (Patient not taking: Reported on 05/08/2022) 15 tablet 0 Levonorgestrel-Ethinyl Estrad (LARISSIA) 0.1mg - 20mcg per tablet Take 1 tablet by mouth once daily. (Patient not taking: Reported on 09/02/2021 ) 84 tablet 5 No current facility-administered medications for this visit. PAST SURGICAL HISTORY Procedure Laterality Date INSERTION OF IUD 10/15/2014 REMOVE IUD 12/2015 FAMILY HISTORY Problem Relation Age of Onset Thyroid Mother hypo Heart Father other (migraines) Sister Heart Maternal Grandfather Heart Paternal Grandfather Social History Tobacco Use Smoking status: Some Days Types: Cigarettes Smokeless tobacco: Never Vaping Use Vaping Use: Never used Substance Use Topics Alcohol use: Yes Comment: occ Drug use: No Objective BP 130/76 Pulse 79 Temp 36.4 C (97.6 F) Resp 18 Wt 78.1 kg (172 lb 3.2 oz) LMP 05/04/2022 (Exact Date) SpO2 99% BMI 28.66 kg/m Physical Exam Vitals reviewed. Constitutional: Appearance: Normal appearance. HENT: Head: Normocephalic and atraumatic. Mouth/Throat: Mouth: Mucous membranes are moist. Pharynx: Oropharynx is clear. Cardiovascular: Rate and Rhythm: Normal rate and regular rhythm. Heart sounds: Normal heart sounds. Pulmonary: Effort: Pulmonary effort is normal. Breath sounds: Normal breath sounds. Abdominal: General: Abdomen is flat. Bowel sounds are normal. There is no distension. Palpations: Abdomen is soft. Tenderness: There is abdominal tenderness. There is no right CVA tenderness, left CVA tenderness or guarding. Comments: Mild bilateral lower abdominal tenderness on palpation. Skin: General: Skin is warm and dry. Neurological: General: No focal deficit present. Mental Status: She is alert. Assessment and Plan ASSESSMENT/PLAN: 1. Urinary frequency - ICD9: 788.41, ICD10: R35.0 (primary diagnosis) acute - UA positive for hematuria Sent for culture will treat if indicated based on that. - negative. - UA DIP, URINE (POC) - HCG QUAL UR B/O - URINE CULTURE 2. Diarrhea, unspecified type - ICD9: 787.91, ICD10: R19.7 Likely related to the COVID-19. Discussed waiting another few days as it will likely go away on its own. Given Bentyl and Zofran for symptoms. If not improving or worsening I did order stool studies but told her to wait. Patient agreeable plan. - ONDANSETRON 4 MG DISINTEGRATING TABLET - DICYCLOMINE 10 MG CAPSULE - C. DIFFICILE PCR - CRYPTOSPORIDIUM AND GIARDIA ANTIGENS BY EIA - ENTERIC BACTERIAL PANEL BY PCR 3. COVID-19 - ICD9: 079.89, ICD10: U07.1 Clair Cotto PA-C documented in this encounter [facility] 05-08-2022 History of Presen t illness Narrative Subjective Headache Associated symptoms include a fever, malaise/fatigue and nausea. Pertinent negatives include no shortness of breath and no vomiting. Tessy Ogden is a 31 year old female who presents with fever, headache, nausea and body aches since yesterday. She has been taking tylenol and advil. She has not had any known sick contacts. Temp max at home has been 102.2 degrees F. She rates her headache pain 3/10 currently. Review of Systems Constitutional: Positive for fever and malaise/fatigue. HENT: Positive for congestion (runny nose). Negative for sore throat. Respiratory: Negative for cough and shortness of breath. Cardiovascular: Negative for chest pain. Gastrointestinal: Positive for nausea. Negative for diarrhea and vomiting. Musculoskeletal: Positive for myalgias. Neurological: Positive for headaches. BP 126/80 Pulse 78 Temp 37.2 C (98.9 F) Resp 16 Wt 77.6 kg (171 lb) LMP 02/28/2022 SpO2 99% BMI 28.46 kg/m PAST MEDICAL HISTORY Diagnosis Date Acid reflux Depression PAST SURGICAL HISTORY Procedure Laterality Date INSERTION OF IUD 10/15/2014 REMOVE IUD 12/2015 ALLERGIES Patient has no known allergies. MEDICATIONS sertraline (ZOLOFT) 50 mg tablet Take 50 mg by mouth once daily. dextromethorphan polistirex ER (DELSYM) 30 mg/5 mL oral liquid Take 10 mL by mouth twice daily. clonazePAM (KLONOPIN) 0.5 mg tablet Take 0.5 mg by mouth as needed. ondansetron orally disintegrating (ZOFRAN ODT) 4 mg disintegrating tablet Take 1 tablet by mouth every 6 hours as needed for nausea/vomiting. (Patient not taking: Reported on 05/08/2022) Levonorgestrel-Ethinyl Estrad (LARISSIA) 0.1mg - 20mcg per tablet Take 1 tablet by mouth once daily. (Patient not taking: Reported on 09/02/2021 ) FAMILY HISTORY Problem Relation Age of Onset Thyroid Mother hypo Heart Father other (migraines) Sister Heart Maternal Grandfather Heart Paternal Grandfather Social History Tobacco Use Smoking status: Some Days Types: Cigarettes Smokeless tobacco: Never Vaping Use Vaping Use: Never used Substance Use Topics Alcohol use: Yes Comment: occ Drug use: No Objective Physical Exam Vitals and nursing note reviewed. Constitutional: Appearance: Normal appearance. HENT: Right Ear: Tympanic membrane, ear canal and external ear normal. Left Ear: Tympanic membrane, ear canal and external ear normal. Nose: Nose normal. Mouth/Throat: Mouth: Mucous membranes are moist. Pharynx: Oropharynx is clear. Uvula midline. No oropharyngeal exudate or posterior oropharyngeal erythema. Cardiovascular: Rate and Rhythm: Normal rate and regular rhythm. Heart sounds: Normal heart sounds. Pulmonary: Effort: Pulmonary effort is normal. No respiratory distress. Breath sounds: Normal breath sounds. No wheezing or rales. Musculoskeletal: Cervical back: Neck supple. Skin: General: Skin is warm and dry. Findings: No erythema or rash. Neurological: Mental Status: She is alert. ASSESSMENT/PLAN: 1. Suspected COVID-19 virus infection - ICD9: V01.79, ICD10: Z20.822 - COVID WITH FLUA+B, ROUTINE - Follow-up with your PCP in 3-5 days if symptoms have not improved or sooner if symptoms worsen - Discussed red flags and need for immediate medical evaluation if any occur. - Discussed supportive care treatment with fluids, rest and analgesia. - Discussed expected course of illness Haydee Prater APRN.CNP documented in this encounter [facility] 05-08-2022 Instructions Haydee Prater APRN.CNP - 05/08/2022 3:02 PM EDT ASSESSMENT/PLAN: 1. Suspected COVID-19 virus infection - ICD9: V01.79, ICD10: Z20.822 - COVID WITH FLUA+B, ROUTINE - Follow-up with your PCP in 3-5 days if symptoms have not improved or sooner if symptoms worsen - Discussed red flags and need for immediate medical evaluation if any occur. - Discussed supportive care treatment with fluids, rest and analgesia. - Discussed expected course of illness Haydee Prater APRN.CNP Beginning Home Isolation Isolation is used to separate people infected with SARS-CoV-2, the virus that causes COVID-19, from people who are not infected. People who are in isolation should stay home until it s safe for them to be around others. In the home, anyone sick or infected should separate themselves from others by staying in a specific sick room or area and using a separate bathroom (if available). Isolation or Quarantine: What's the difference? Quarantine keeps someone who might have been exposed to the virus away from others. Isolation keeps someone who is infected with the virus away from others, even in their home. Who needs to isolate People who have COVID-19 People who have symptoms of COVID-19 and are able to recover at home People who have no symptoms (are asymptomatic) but have tested positive for infection with SARS-CoV-2 Steps to take Stay home except to get medical care Monitor your symptoms. Stay in a separate room from other household members, if possible Use a separate bathroom, if possible Avoid contact with other members of the household and pets Don t share personal household items, like cups, towels, and utensils Wear a mask when around other people, if you are able to When to seek emergency medical attention Look for emergency warning signs* for COVID-19. If someone is showing any of these signs, seek emergency medical care immediately: Trouble breathing Persistent pain or pressure in the chest New confusion Inability to wake or stay awake Bluish lips or face *This list is not all possible symptoms. Please call your medical provider for any other symptoms that are severe or concerning to you. Call 911 or call ahead to your local emergency facility: Notify the brimming machine operator that you are seeking care for someone who has or may have COVID-19. Ending Home Isolation - When you can be around others after you had or likely had COVID-19 When you can be around others after you had or likely had COVID-19 If You Test Positive for COVID-19 (Isolation) Everyone, regardless of vaccination status: Stay home for 5 days. Note: Day 0 is your first day of symptoms or the date of collection of a positive viral test if no symptoms. Day 1 is the first full day after symptoms developed or test specimen was collected. If you have no symptoms or your symptoms are resolving after 5 days, you can leave your house. Continue to wear a mask around others for 5 additional days. If you have a fever, continue to stay home until your fever resolves, even if it is longer than 5 days. If You Were Exposed to Someone with COVID-19 (Quarantine) If you: 1. Have been boosted OR 2. Completed the primary series of Pfizer or Moderna vaccine within the last 6 months OR 3. Completed the primary series of J&J vaccine within the last 2 months THEN: 1. Wear a mask around others for 10 days. 2. Test on day 5, if possible. If you develop symptoms get a test and stay home. If You Were Exposed to Someone with COVID-19 (Quarantine) If you: 1. Completed the primary series of Pfizer or Moderna vaccine over 6 months ago and are not boosted OR 2. Completed the primary series of J&J over 2 months ago and are not boosted OR 3. Are unvaccinated THEN: 1. Stay home for 5 days. After that continue to wear a mask around others for 5 additional days. 2. If you can't quarantine you must wear a mask for 10 days. 3. Test on day 5 if possible. If you develop symptoms get a test and stay home. I had COVID-19 or I tested positive for COVID-19 and I have a weakened immune system If you have a weakened immune system (immunocompromised) due to a health condition or medication, you might need to stay home and isolate longer than 10 days. Talk to your healthcare provider for more information. Your doctor may work with an infectious disease expert at your local health department to determine when you can be around others. Beginning Home Isolation Isolation is used to separate people infected with SARS-CoV-2, the virus that causes COVID-19, from people who are not infected. People who are in isolation should stay home until it s safe for them to be around others. In the home, anyone sick or infected should separate themselves from others by staying in a specific sick room or area and using a separate bathroom (if available). Isolation or Quarantine: What's the difference? Quarantine keeps someone who might have been exposed to the virus away from others. Isolation keeps someone who is infected with the virus away from others, even in their home. Who needs to isolate People who have COVID-19 People who have symptoms of COVID-19 and are able to recover at home People who have no symptoms (are asymptomatic) but have tested positive for infection with SARS-CoV-2 Steps to take Stay home except to get medical care Monitor your symptoms. Stay in a separate room from other household members, if possible Use a separate bathroom, if possible Avoid contact with other members of the household and pets Don t share personal household items, like cups, towels, and utensils Wear a mask when around other people, if you are able to When to seek emergency medical attention Look for emergency warning signs* for COVID-19. If someone is showing any of these signs, seek emergency medical care immediately: Trouble breathing Persistent pain or pressure in the chest New confusion Inability to wake or stay awake Bluish lips or face *This list is not all possible symptoms. Please call your medical provider for any other symptoms that are severe or concerning to you. Call 911 or call ahead to your local emergency facility: Notify the brimming machine operator that you are seeking care for someone who has or may have COVID-19. Ending Home Isolation - When you can be around others after you had or likely had COVID-19 When you can be around others after you had or likely had COVID-19 If You Test Positive for COVID-19 (Isolation) Everyone, regardless of vaccination status: Stay home for 5 days. Note: Day 0 is your first day of symptoms or the date of collection of a positive viral test if no symptoms. Day 1 is the first full day after symptoms developed or test specimen was collected. If you have no symptoms or your symptoms are resolving after 5 days, you can leave your house. Continue to wear a mask around others for 5 additional days. If you have a fever, continue to stay home until your fever resolves, even if it is longer than 5 days. If You Were Exposed to Someone with COVID-19 (Quarantine) If you: 1. Have been boosted OR 2. Completed the primary series of Pfizer or Moderna vaccine within the last 6 months OR 3. Completed the primary series of J&J vaccine within the last 2 months THEN: 1. Wear a mask around others for 10 days. 2. Test on day 5, if possible. If you develop symptoms get a test and stay home. If You Were Exposed to Someone with COVID-19 (Quarantine) If you: 1. Completed the primary series of Pfizer or Moderna vaccine over 6 months ago and are not boosted OR 2. Completed the primary series of J&J over 2 months ago and are not boosted OR 3. Are unvaccinated THEN: 1. Stay home for 5 days. After that continue to wear a mask around others for 5 additional days. 2. If you can't quarantine you must wear a mask for 10 days. 3. Test on day 5 if possible. If you develop symptoms get a test and stay home. I had COVID-19 or I tested positive for COVID-19 and I have a weakened immune system If you have a weakened immune system (immunocompromised) due to a health condition or medication, you might need to stay home and isolate longer than 10 days. Talk to your healthcare provider for more information. Your doctor may work with an infectious disease expert at your local health department to determine when you can be around others. documented in this encounter [facility] 04-17-2022 History of Presen t illness Narrative Subjective HPI HPI Tessy Ogden is a 31 year old female who presents today for CC of congestion, fever, diarrhea, vomiting. This started 2 days ago. Has tried otc medication for relief. Symptoms are worsened by nothing. Risk factors sick exposures at work. Denies cough, cp/sob, ear pain, abd pain. Possibly . Concerned for , not using protection. Normal menstrual cycle last month. .Patient presents with: Congested: head congestion, fever, diarrhea and vomiting x 2 days PAST MEDICAL HISTORY Diagnosis Date Acid reflux Depression PAST SURGICAL HISTORY Procedure Laterality Date INSERTION OF IUD 10/15/2014 REMOVE IUD 12/2015 ALLERGIES Patient has no known allergies. MEDICATIONS ondansetron orally disintegrating (ZOFRAN ODT) 4 mg disintegrating tablet Take 1 tablet by mouth every 6 hours as needed for nausea/vomiting. sertraline (ZOLOFT) 50 mg tablet Take 50 mg by mouth once daily. dextromethorphan polistirex ER (DELSYM) 30 mg/5 mL oral liquid Take 10 mL by mouth twice daily. Levonorgestrel-Ethinyl Estrad (LARISSIA) 0.1mg - 20mcg per tablet Take 1 tablet by mouth once daily. (Patient not taking: Reported on 09/02/2021 ) clonazePAM (KLONOPIN) 0.5 mg tablet Take 0.5 mg by mouth as needed. FAMILY HISTORY Problem Relation Age of Onset Thyroid Mother hypo Heart Father other (migraines) Sister Heart Maternal Grandfather Heart Paternal Grandfather Social History Tobacco Use Smoking status: Some Days Types: Cigarettes Smokeless tobacco: Never Vaping Use Vaping Use: Never used Substance Use Topics Alcohol use: Yes Comment: occ Drug use: No ROS Objective Blood pressure 134/80, pulse 76, temperature 36.5 C (97.7 F), resp. rate 16, weight 79.4 kg (175 lb), last menstrual period 02/28/2022, SpO2 98 %. Physical Exam Constitutional: General: She is not in acute distress. Appearance: She is not toxic-appearing or diaphoretic. HENT: Head: Normocephalic and atraumatic. Nose: Nose normal. Mouth/Throat: Pharynx: Uvula midline. No pharyngeal swelling, oropharyngeal exudate, posterior oropharyngeal erythema or uvula swelling. Eyes: General: Lids are normal. No scleral icterus. Right eye: No discharge. Left eye: No discharge. Conjunctiva/sclera: Conjunctivae normal. Pupils: Pupils are equal, round, and reactive to light. Neck: Trachea: Trachea normal. Cardiovascular: Rate and Rhythm: Normal rate and regular rhythm. Heart sounds: Normal heart sounds. Pulmonary: Effort: Pulmonary effort is normal. Breath sounds: Normal breath sounds. Abdominal: General: Bowel sounds are normal. Palpations: Abdomen is soft. Tenderness: There is no abdominal tenderness. Musculoskeletal: Cervical back: Normal range of motion and neck supple. Lymphadenopathy: Cervical: No cervical adenopathy. Right cervical: No superficial cervical adenopathy. Left cervical: No superficial cervical adenopathy. Skin: Findings: No rash. Neurological: Mental Status: She is alert and oriented to person, place, and time. ASSESSMENT/PLAN: 1. Vomiting, unspecified vomiting type, unspecified whether nausea present - ICD9: 787.03, ICD10: R11.10 (primary diagnosis) Push fluids Go to ER for severe/worsening s/s. - HCG QUAL UR B/O 2. Viral syndrome - ICD9: 079.99, ICD10: B34.9 - Discussed viral etiology and rationale for treatment. - Symptomatic treatment with prn analgesia - Supportive care with fluids and rest - Follow up in 3-5 days if symptoms persist or sooner if worsening of symptoms Discussed quarantine, social distancing otc medications discussed Push fluids -If you experience chest pain/shortness of breath go to ER - ONDANSETRON 4 MG DISINTEGRATING TABLET - COVID WITH FLUA+B, ROUTINE Agrees to plan Su Vinson APRN.LINDA documented in this encounter [facility] 03-23-2022 Instructions Tran Garcia APRN.CNP - 03/23/2022 4:55 PM EDT covid test ordered You will be notified in 24 hours, results available on MyChart Home isolation until covid results are back Rest, increase water intake Motrin or Tylenol as needed for fever or pain. Salt water gargles, chloraseptic spray or lozenges as needed for sore throat. Warm beverages, honey. Nasal saline spray as needed Cool mist humidifier at night Tylenol (generic acetaminophen) 500 mg-2 tabs every 8 hrs. as needed for fever and aches Ibuprofen 600 mg (3-200mg tablets) every 6 hours * Seek medical care immediately, call 911, go to ER if you have chest pain, difficulty breathing, shortness of breath, inability to swallow. documented in this encounter [facility] 03-23-2022 History of Presen t illness Narrative Subjective The history is provided by the patient and a relative. No starch mangle tender was used. HPI Tessy Ogden is a 31 year old female who presents today for CC of sore throat, headache, mild nausea, and fatigue for one days. She denies fever, rhinorrhea, cough, nasal congestion, no vomiting or diarrhea. No known exposure to strep, covid, or other viral illnesses. Mother has similar symptoms. BP 122/74 Pulse 84 Temp 36.4 C (97.6 F) Resp 16 Wt 77.1 kg (170 lb) LMP 02/28/2022 SpO2 97% BMI 28.29 kg/m Social History Tobacco Use Smoking status: Some Days Types: Cigarettes Smokeless tobacco: Never Vaping Use Vaping Use: Never used Substance Use Topics Alcohol use: Yes Comment: occ Drug use: No PAST MEDICAL HISTORY Diagnosis Date Acid reflux Depression I have confirmed and edited as necessary, the [facility] Review of Systems Constitutional: Positive for malaise/fatigue. Negative for chills and fever. HENT: Positive for sore throat. Negative for congestion, ear pain and sinus pain. Respiratory: Negative for cough, sputum production, shortness of breath and wheezing. Cardiovascular: Negative for chest pain. Gastrointestinal: Positive for nausea. Negative for abdominal pain, diarrhea and vomiting. Musculoskeletal: Negative for myalgias. Neurological: Positive for headaches. Objective Physical Exam Vitals and nursing note reviewed. HENT: Head: Normocephalic and atraumatic. Right Ear: Tympanic membrane, ear canal and external ear normal. Left Ear: Tympanic membrane, ear canal and external ear normal. Nose: No mucosal edema, congestion or rhinorrhea. Right Sinus: No maxillary sinus tenderness or frontal sinus tenderness. Left Sinus: No maxillary sinus tenderness or frontal sinus tenderness. Mouth/Throat: Pharynx: Uvula midline. Posterior oropharyngeal erythema present. No oropharyngeal exudate. Tonsils: No tonsillar exudate or tonsillar abscesses. Comments: Tonsils grade 2 Cardiovascular: Rate and Rhythm: Normal rate and regular rhythm. Heart sounds: Normal heart sounds. Pulmonary: Effort: Pulmonary effort is normal. Breath sounds: Normal breath sounds. Lymphadenopathy: Head: Right side of head: No submental, submandibular or tonsillar adenopathy. Left side of head: No submental, submandibular or tonsillar adenopathy. Cervical: No cervical adenopathy. Skin: General: Skin is warm and dry. Neurological: Mental Status: She is alert. Psychiatric: Mood and Affect: Affect normal. ASSESSMENT/PLAN: 1. Sore throat - ICD9: 462, ICD10: J02.9 (primary diagnosis) - suspect viral - Alere Strep Test negative, no culture pending - STREP A MOLECULAR (POC) - COVID WITH FLUA+B, ROUTINE 2. Headache, unspecified headache type - ICD9: 784.0, ICD10: R51.9 - COVID WITH FLUA+B, ROUTINE 3. Fatigue, unspecified type - ICD9: 780.79, ICD10: R53.83 Home isolation Testing ordered Comfort measures discussed - see patient instructions. When to seek higher level of care Notified in 24-48 hours with results, available on mychart - COVID WITH FLUA+B, ROUTINE Diagnosis and treatment plan were discussed and questions were answered to the patient's satisfaction. Pt acknowledged understanding of concepts and follow up plan. Specific signs and symptoms that would indicate the need for higher level of care were discussed in detail warranting prompt ER evaluation. Tran Garcia APRN.LINDA documented in this encounter [facility] documented as of this encounter (statuses as of 03/23/2022) [place] [id number] History of Past illness Narrative* Problem Noted Date Resolved Date Supervision of normal first 10/10/2012 10/10/2012 documented as of this encounter (statuses as of 04/17/2022) [address] History of Past illness Narrative* Problem Noted Date Resolved Date Supervision of normal first 10/10/2012 10/10/2012 documented as of this encounter (statuses as of 05/08/2022) [address] History of Past illness Narrative* Problem Noted Date Resolved Date Supervision of normal first 10/10/2012 10/10/2012 documented as of this encounter (statuses as of 05/18/2022) [address] History of Past illness Narrative* Problem Noted Date Resolved Date Supervision of normal first 10/10/2012 10/10/2012 documented as of this encounter (statuses as of 07/19/2022) [address] History of Past illness Narrative* Problem Noted Date Resolved Date Supervision of normal first 10/10/2012 10/10/2012 documented as of this encounter (statuses as of 08/09/2022) [address] History of Past illness Narrative* Problem Noted Date Resolved Date Supervision of normal first 10/10/2012 10/10/2012 documented as of this encounter (statuses as of 08/10/2022) [address] History of Past illness Narrative* Problem Noted Date Resolved Date Supervision of normal first 10/10/2012 10/10/2012 documented as of this encounter (statuses as of 10/04/2022) [address]-2013 History of Past illness Narrative* Problem Noted Date Resolved Date Supervision of normal first 10/10/2012 10/10/2012 documented as of this encounter (statuses as of 10/12/2022) [address]-2013 History of Past illness Narrative* Problem Noted Date Resolved Date Supervision of normal first 10/10/2012 10/10/2012 documented as of this encounter (statuses as of 11/13/2022) [place] [id number] History of Past illness Narrative* Problem Noted Date Resolved Date Supervision of normal first 10/10/2012 10/10/2012 documented as of this encounter (statuses as of 11/22/2022) [facility]03-14-2013 History of Past illness Narrative* Problem Noted Date Diagnosed Date Resolved Date Supervision of normal first 10/10/2012 10/10/2012 documented as of this encounter (statuses as of 03/18/2023) [facility]ments Appointment Date:08/15/2022 02:00:00 PM Scheduled Provider:JAILENE SUH Location:[employer] [facility] 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 [facility] Evaluation + Plan note Future Appointments Appointment Date:12/12/2022 03:30:00 PM Scheduled Provider:JAILENE SUH Location:[employer] [facility] Appointment Type:GATO OV Follow Up Diagnostic Tests Pending * Antinuclear Antibody Screen, Serum 11/22/22 * Rheumatoid Factor 11/22/22 [facility] Diagnosis Sore throat- Primary Acute pharyngitis Headache, unspecified headache type Fatigue, unspecified type documented in this encounter [facility] note* Diagnosis Vomiting, unspecified vomiting type, unspecified whether nausea present- Primary Viral syndrome Unspecified viral infection, in conditions classified elsewhere and of unspecified site documented in this encounter [facility] note* Diagnosis Suspected COVID-19 virus infection- Primary [facility] Diagnosis Urinary frequency- Primary Diarrhea, unspecified type COVID-19 [facility] Diagnosis Sore throat- Primary Acute pharyngitis URI, acute Acute upper respiratory infections of unspecified site documented in this encounter [facility] note* Diagnosis Sore throat- Primary Acute pharyngitis Vomiting and diarrhea Vomiting alone documented in this encounter [facility] note* Diagnosis Exposure to strep throat- Primary Contact with or exposure to other communicable diseases Flu-like symptoms Other general symptoms documented in this encounter [facility] note* Diagnosis Viral illness- Primary Unspecified viral infection, in conditions classified elsewhere and of unspecified site documented in this encounter [facility] note* Diagnosis Urinary frequency- Primary Vaginal discharge Leukorrhea, not specified as infective [facility] Diagnosis Right hand pain- Primary Pain in limb Injury of right hand, initial encounter documented in this encounter [facility] course Narrative No data available for this section [facility] Hospital Discharge instructions No data available for this section [facility] Progress note No data available for this section [facility] Summary Purpose Family History No Family History Records FoundNo Family History Records FoundNo Family History Records FoundNo Family History Records Found Advance Directives No Advanced Directives Records FoundNo Advanced Directives Records FoundNo Advanced Directives Records FoundNo Advanced Directives Records Found Health Concerns Infection Onset Date Last Indicated Resolved Time COVID-19 Rule-Out 03/23/2022 03/23/2022 Infection Onset Date Last Indicated Resolved Time COVID-19 Rule-Out 05/08/2022 05/08/2022 Infection Onset Date Last Indicated Resolved Time COVID-19 Confirmed 05/08/2022 05/08/2022 Infection Onset Date Last Indicated Resolved Time COVID-19 Rule-Out 07/19/2022 07/19/2022 Additional Source Comments INFORMATION SOURCE (unrecogn ized section and content) DATE CREATED AUTHOR AUTHOR'S ORGANIZ ATION 03/26/2023 [facility] ([place]) DATE CREATED AUTHOR AUTHOR'S ORGANIZ ATION 05/11/2023 [facility] DATE CREATED AUTHOR AUTHOR'S ORGANIZ ATION 08/09/2023 [facility] Source Comments (unrecognize d section and content) In the event this informatio n is protected by the Federal Confidentiality of Alcohol and Drug Abuse Patient Records regulations: The Federal rules restrict any use of the information to criminally investigate or prosecute any alcohol or drug abuse patient.[facility] the event this information is protected by the Federal Confidentiality of Alcohol and Drug Abuse Patient Records regulations: The Federal rules restrict any use of the information to criminally investigate or prosecute any alcohol or drug abuse patient.[facility] the event this information is protected by the Federal Confidentiality of Alcohol and Drug Abuse Patient Records regulations: The Federal rules restrict any use of the information to criminally investigate or prosecute any alcohol or drug abuse patient.[facility] the event this information is protected by the Federal Confidentiality of Alcohol and Drug Abuse Patient Records regulations: The Federal rules restrict any use of the information to criminally investigate or prosecute any alcohol or drug abuse patient.[facility] the event this information is protected by the Federal Confidentiality of Alcohol and Drug Abuse Patient Records regulations: The Federal rules restrict any use of the information to criminally investigate or prosecute any alcohol or drug abuse patient.[facility] the event this information is protected by the Federal Confidentiality of Alcohol and Drug Abuse Patient Records regulations: The Federal rules restrict any use of the information to criminally investigate or prosecute any alcohol or drug abuse patient.[facility] the event this information is protected by the Federal Confidentiality of Alcohol and Drug Abuse Patient Records regulations: The Federal rules restrict any use of the information to criminally investigate or prosecute any alcohol or drug abuse patient.[facility] the event this information is protected by the Federal Confidentiality of Alcohol and Drug Abuse Patient Records regulations: The Federal rules restrict any use of the information to criminally investigate or prosecute any alcohol or drug abuse patient.[facility] the event this information is protected by the Federal Confidentiality of Alcohol and Drug Abuse Patient Records regulations: The Federal rules restrict any use of the information to criminally investigate or prosecute any alcohol or drug abuse patient.[facility] the event this information is protected by the Federal Confidentiality of Alcohol and Drug Abuse Patient Records regulations: The Federal rules restrict any use of the information to criminally investigate or prosecute any alcohol or drug abuse patient.[facility] the event this information is protected by the Federal Confidentiality of Alcohol and Drug Abuse Patient Records regulations: The Federal rules restrict any use of the information to criminally investigate or prosecute any alcohol or drug abuse patient.[facility] the event this information is protected by the Federal Confidentiality of Alcohol and Drug Abuse Patient Records regulations: The Federal rules restrict any use of the information to criminally investigate or prosecute any alcohol or drug abuse patient.[facility] Reason for Visit (unrecogniz ed section and content) Reason Comments Congested head congestion, fev er, diarrhea and vomiting x 2 days Reason Comments Headache fever x 1 day Reason Comments Nausea & Vomiting Diarrhea x1 wk. Reason Comments Cough Cough, ST and bodyac hes x 1 day Reason Comments Sore Throat fatigue, upset stoma ch, loss of appetite x 3-4 days Reason Comments Results Reason Comments Headache Diarrhea, vomiting, congestion, runny nose x last night Reason Comments Diarrhea Diarrhea, bodyaches, fatigue, CALVIN and vomiting x 1 week Reason Comments Urinary Frequency With pain x2 days Reason Comments Headache CALVIN, bodyaches and fa tigue x 1 day Reason Comments Hand Injury right hand pain and swelling x 1 day, fall Care Teams (unrecognized sec tion and content) Economic Development Director Relationship Specialty Start Date End Date Alfa Rogers MD PCP - General Family Medicine 10/19/10 Economic Development Director Relationship Specialty Start Date End Date Alfa Rogers MD PCP - General Family Medicine 10/19/10 Economic Development Director Relationship Specialty Start Date End Date Alfa Rogers MD PCP - General Family Medicine 10/19/10 Economic Development Director Relationship Specialty Start Date End Date Alfa Rogers MD PCP - General Family Medicine 10/19/10 Economic Development Director Relationship Specialty Start Date End Date Alfa Rogers MD PCP - General Family Medicine 10/19/10 Economic Development Director Relationship Specialty Start Date End Date Alfa Rogers MD PCP - General Family Medicine 10/19/10 Economic Development Director Relationship Specialty Start Date End Date Alfa Rogers MD PCP - General Family Medicine 10/19/10 Care Team (unrecognized sect ion and content) Care Team Personnel Name: JAILENE SUH APRN-CHRISTIAN COUNSELOR Position: P4 Advanced Practice Nurse Member Role: Primary Care Physician Address: Address: [address] [place] [id number]- [place] Name: Kenyatta Ahumada RN Position: AO RN Member Role: RN Name: MD LIA, LAUREEN [place] Position: AH ED Physician Member Role: ED Physician Address: Address: [address] [place] [address]- [place] Care Team Personnel Name: JAILENE SUH BELLE-CHRISTIAN COUNSELOR Position: P4 Advanced Practice Nurse Member Role: Primary Care Physician Address: Address: [address] [place] [address]- Care Team Related Persons Name: SOPHIA OGDENWNYA Getachew Address: Home [address] [place] [address] FOR RECORDS PERTAINING TO PATIENTS WHO ARE OR HAVE BEEN ENROLLED IN A CHEMICAL DEPENDENCY/SUBSTANCEABUSE PROGRAM, SOME INFORMATION MAY BE OMITTED. This clinical summary was aggregated from multiple sources. Caution should be exercised in using it in the provision of clinical care. This summary normalizes information from multiple sources, and as a consequence, information in this document may materially change the coding, format and clinical context of patient data. In addition, data may be omitted in some cases. CLINICAL DECISIONS SHOULD BE BASED ON THE PRIMARY CLINICAL RECORDS. [facility] provides no warranty or guarantee of the accuracy or completeness of information in this document.
--- NOTE | 2023-08-09 16:10 | NURSING ---
CRISIS WITH PATIENT
--- NOTE | 2023-08-09 16:11 | NURSING ---
CHART FAXED TO CRISIS
[2023-08-09 17:13] VITALS: BP 127/86; PULSE 84; RESP 18; O2SAT 99
== END 2023-08-09 17:14 | disposition home or self-care (01) ==
PROVIDERS: Emergency Provider Student in an Organized Health Care Education/Training Program; PCP Nurse Practitioner Primary Care; Visit Provider Student in an Organized Health Care Education/Training Program
DX: F32.A Depression, unspecified (principal); F17.210 Nicotine dependence, cigarettes, uncomplicated; Z79.899 Other long term (current) drug therapy; Z79.3 Long term (current) use of hormonal contraceptives
CPT/HCPCS: 80048; 80307; 80320; 81001; 84703; 85025; 87811; 99282; G0480